=== PATIENT | female | born 1945 | race Caucasian/White ===

== ENCOUNTER 2025-04-06 10:59 | Emergency (ER) | payer MEDICARE, SELFPAY ==
[2025-04-06 11:08] VITALS: BP 160/70; PULSE 67; RESP 16; TEMP 36.6; O2SAT 97; BMI 26.5
--- NOTE | 2025-04-06 11:14 | EKG_ITS ---
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
--- NOTE | 2025-04-06 12:33 | PC.NURSE ---
Patient requests to leave. Explained provider is in room with patient and she is next to be seen. Estimated time provided of within 30 mins she will be seen by provider. Patient declines to be seen by provider or wait, requests to leave, declines ama form verbalizes wishes to leave.
== END 2025-04-06 12:33 | disposition left against medical advice (07) ==
PROVIDERS: Emergency Provider Student in an Organized Health Care Education/Training Program; PCP Family Medicine
DX: S09.90XA Unspecified injury of head, initial encounter (principal); W18.00XA Striking against unspecified object with subsequent fall, initial encounter; I10 Essential (primary) hypertension
CPT/HCPCS: 93005; 99281

== ENCOUNTER → 2025-07-16 09:17 | Outpatient (CLI) | payer MEDICARE, SELFPAY ==
[2025-07-16 10:01] LABS: Add Manual Diff / Slide Review NO; Hematocrit 46.4 % (36-46); Hemoglobin 15.7 g/dL (12.0-16.0); Lymphocytes Absolute Auto 3600 /uL (1100-4500); Mean Corpuscular HGB Conc 33.9 % (30-36); Mean Corpuscular Hemoglobin 30.0 PG (26-34); Mean Corpuscular Volume 88.7 fL (80-100); Platelet Count 167 X10^3/uL (150-400)
[2025-07-16 10:19] LABS: Alanine Aminotransferase 20 IU/L (<35); Albumin 4.7 g/dL (3.5-5.0); Albumin Globulin Ratio 1.8 (1.0-2.8); Alkaline Phosphatase 90 U/L (38-126); Blood Urea Nitrogen 10 mg/dL (7-17); Calcium 9.5 mg/dL (8.4-10.2); Carbon Dioxide 24 mmol/L (22-32); Chloride 108 mmol/L (98-107); Estimated Glomerular Filt Rate > 60 mL/min (>60); Globulin 2.6 g/dL (1.7-4.1); Glucose 93 mg/dL (70-99); HEMOLYSIS < 15 (0-50); Potassium 4.3 mmol/L (3.4-5.1); Sodium 142 mmol/L (137-145); Total Protein 7.3 g/dL (6.3-8.2)
== END ==
PROVIDERS: PCP Family Medicine; Referring Provider Family Medicine; Visit Provider Family Medicine
DX: Z79.899 Other long term (current) drug therapy (principal); R26.89 Other abnormalities of gait and mobility; G20.A1 Parkinson's disease without dyskinesia, without mention of fluctuations
CPT/HCPCS: 36415; 80053; 85025

== ENCOUNTER 2025-09-26 16:12 | Inpatient (IN) | payer MEDICARE, SELFPAY ==
[2025-09-26] VITALS (16 sets, daily range): BP systolic 137–162; BP diastolic 59–72; PULSE 62–101; RESP 13–24; TEMP 36.5; O2SAT 95–99; BMI 26.5
--- NOTE | 2025-09-26 17:16 | DI.RAD.S_ITS ---
PROCEDURE: XR CHEST 1V INDICATIONS: gen weak TECHNIQUE: One view of the chest was acquired. COMPARISON: None. FINDINGS: Surgical changes and devices: None. Lungs and pleura: Lungs are clear. No pleural effusions or pneumothorax. Mild interstitial prominence. Mediastinum: Mediastinal contours appear normal. Heart size is normal. Bones and chest wall: No suspicious bony lesions. Overlying soft tissues appear unremarkable. IMPRESSION: No acute cardiopulmonary abnormality is seen. Dictated by: Trevon Parker M.D. on 09/26/2025 at 16:46 Approved by: Trevon Parker M.D. on 09/26/2025 at 16:47
[2025-09-26] MEDS: SODIUM CHLORIDE 0.9% 1,000 ML 1000 ML IV (17:42)
[2025-09-26 17:46] LABS: Add Manual Diff / Slide Review NO; Hematocrit 45.7 % (36-46); Hemoglobin 15.8 g/dL (12.0-16.0); Lymphocytes Absolute Auto 3300 /uL (1100-4500); Mean Corpuscular HGB Conc 34.5 % (30-36); Mean Corpuscular Hemoglobin 29.9 PG (26-34); Mean Corpuscular Volume 86.9 fL (80-100); Platelet Count 170 X10^3/uL (150-400)
[2025-09-26 17:59] LABS: Alanine Aminotransferase 23 IU/L (<35); Albumin 4.8 g/dL (3.5-5.0); Albumin Globulin Ratio 1.5 (1.0-2.8); Alkaline Phosphatase 90 U/L (38-126); Blood Urea Nitrogen 16 mg/dL (7-17); Calcium 9.7 mg/dL (8.4-10.2); Carbon Dioxide 24 mmol/L (22-32); Chloride 105 mmol/L (98-107); Creatine Kinase 246 U/L (30-135); Estimated Glomerular Filt Rate > 60 mL/min (>60); Globulin 3.1 g/dL (1.7-4.1); Glucose 150 mg/dL (70-99); HEMOLYSIS < 15 (0-50); Potassium 3.2 mmol/L (3.4-5.1); Sodium 141 mmol/L (137-145); Total Protein 7.9 g/dL (6.3-8.2)
--- NOTE | 2025-09-26 18:02 | EKG_ITS ---
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
[2025-09-26 18:10] LABS: Troponin I < 0.012 ng/mL (0.01-0.034)
--- NOTE | 2025-09-26 19:03 | ED.WEAKNESS ---
HPI - Weakness General Chief complaint: Weakness Stated complaint: Fall Time Seen by Provider: 09/26/25 17:15 Source: patient Mode of arrival: EMS History of Present Illness HPI Narrative: 80-year-old female patient with a history of Parkinson's who lives in assisted living and was found down at independent living for 12 hours since last seen normal. She has had increasing weakness for months with increased falls in the last 4-5 days. Also has poor appetite not eating much in 5 days. And urinary incontinence which is new. patient tends to downplay her weakness. Her sister is with her and says she has not eaten much in 5 days and when she is on the floor she does not have the strength to get up. She says that is why she has not made it down to the cafeteria to eat. No recent illnesses. No fever, chills, URI or GI symptoms. No dysuria. Related Data Home Medications ?Medication ?Instructions ?Recorded ?Confirmed aspirin 325 mg tablet 325 mg PO BID 08/25/24 07/16/25 gabapentin 1 cap PO DAILY PRN 07/16/25 07/16/25 Allergies Allergy/AdvReac Type Severity Reaction Status Date / Time Sulfa (Sulfonamide Allergy Mild Hives Verified 07/16/25 07:23 Antibiotics) Review of Systems Review of Systems ROS Unobtainable: All systems reviewed & are unremarkable except as noted in HPI and below Constitutional Constitutional: Reports as per HPI Neurologic Neurologic: Reports as per HPI Patient History Social History Smoking Status: Never smoker Smoking Status: Never smoker Exam Narrative Exam Narrative: General: Alert and conversant. No distress. Appears adequately nourished and hydrated. Craniofacial: No evidence of trauma. Nontender and no swelling. Eyes: PERRLA EOMI conjunctiva clear Lungs: Clear to auscultation with good air movement. No wheezing, rales or rhonchi. No respiratory distress Cardiac: Regular rate and rhythm with no appreciable murmur or gallop Abdomen: Soft, nontender with no distention or masses. Normal bowel sounds. No rebound or guarding Musculoskeletal: Patient has MCL tenderness of the left knee with palpation and valgus stress. Otherwise no effusion or bony deformity. Otherwise Exam of the extremities, axial spine and ribcage reveals no deformity, bony tenderness or swelling. Range of motion intact Neuro: Alert and Cranial nerves, motor, sensory and cerebellar all grossly intact. No focal deficit Skin: Warm and normal color. No rashes Psychological: Normal affect and interaction. No evidence of delusion or psychosis. Normal mood. Initial Vital Signs Initial Vital Signs: Vital Signs Temperature 97.7 F 09/26/25 16:28 Pulse Rate 80 09/26/25 16:28 Respiratory Rate 18 09/26/25 16:28 Blood Pressure 137/63 09/26/25 16:28 Pulse Oximetry 99 09/26/25 16:28 Oxygen Delivery Method Room Air 09/26/25 16:28 Course Course Course Narrative: 21:10 I discussed the patient's care with Dr. Haddad who agrees to admit her on observation for generalized weakness and anorexia with possible dehydration. Decision to Admit Date: 09/26/25 Decision to Admit time: 21:10 Orders Ordered: ED Orders 09/26/25 17:16 Chest [XR chest 1V] Stat UA Complete [Urinalysis and Microscopic] Stat 09/26/25 17:35 CBC Auto Diff [Complete Blood Count AUTO DIFF] Stat CK [Creatine Kinase] Stat CMP [Comprehensive Metabolic Panel] Stat MAG [Magnesium] Stat Trop I [Troponin I] Stat 09/26/25 17:49 EKG-12 Lead Stat 09/26/25 21:16 Consult to Occupational Therapy Evaluate & Treat Consult to Physical Therapy Evaluate & Treat 09/27/25 06:00 Complete Blood Count AUTO DIFF DAILY Comprehensive Metabolic Panel DAILY Acetaminophen (Acetaminophen 325 Mg Tablet) 650 mg PO Q6H PRN PRN Reason: Fever/Mild Pain (1-3) Hydrocodone Bitart/Acetaminophen (Hydrocodone/Acet 5/325 Tablet) 1 tab PO Q4H PRN PRN Reason: Pain, Moderate (4-6) Gabapentin (Gabapentin 600 Mg Tablet) 600 mg PO DAILY PRN PRN Reason: pain Sodium Chloride (Normal Saline 0.9%) 1,000 mls @ 75 mls/hr IV CONT GUERDA Naloxone HCl (Naloxone 0.4 Mg/Ml Vial) 0.2 mg IV Q2MIN PRN PRN Reason: Opiate Reversal Ondansetron HCl (Ondansetron 4 Mg/2 Ml Inj) 4 mg IV Q8HR PRN PRN Reason: Nausea And Vomiting Discontinued Medications Sodium Chloride (Normal Saline 0.9%) 1,000 mls @ 1,000 mls/hr IV BOLUS ONE Stop: 09/26/25 18:15 Last Infusion: 09/26/25 18:44 Dose: Infused Documented By: Admin: 09/26/25 17:42 Dose: 1,000 mls/hr Documented By: RESHMA Vital Signs Vital signs: Vital Signs - 8 hr 09/26/25 16:28 09/26/25 17:25 09/26/25 17:30 Temperature 97.7 F Pulse Rate 80 75 Respiratory Rate 18 20 Blood Pressure 137/63 149/68 H Pulse Oximetry 99 97 Oxygen Delivery Method Room Air 09/26/25 17:30 09/26/25 18:00 09/26/25 18:30 Temperature Pulse Rate 75 76 63 Respiratory Rate 24 22 14 Blood Pressure Pulse Oximetry 97 95 96 Oxygen Delivery Method 09/26/25 19:00 09/26/25 19:30 09/26/25 19:46 Temperature Pulse Rate 65 62 80 Respiratory Rate 13 16 Blood Pressure Pulse Oximetry 97 96 98 Oxygen Delivery Method 09/26/25 19:46 09/26/25 19:56 09/26/25 19:56 Temperature Pulse Rate 72 Respiratory Rate 21 Blood Pressure 156/70 H 158/69 H Pulse Oximetry 97 Oxygen Delivery Method 09/26/25 20:00 09/26/25 20:00 09/26/25 20:30 Temperature Pulse Rate 70 69 Respiratory Rate 20 23 Blood Pressure 144/67 H Pulse Oximetry 96 99 Oxygen Delivery Method 09/26/25 20:30 09/26/25 21:00 09/26/25 21:00 Temperature Pulse Rate 73 Respiratory Rate 23 Blood Pressure 153/72 H 160/72 H Pulse Oximetry 98 Oxygen Delivery Method 09/26/25 21:19 09/26/25 21:19 Temperature Pulse Rate 71 Respiratory Rate 17 Blood Pressure 162/72 H Pulse Oximetry 96 Oxygen Delivery Method MDM - Weakness Medical Records Attestation: I reviewed the patient's medical records. Lab Data Attestation: I reviewed the patient's lab results. Lab results narrative: see my notes under MDM narrative 09/26/25 17:35 09/26/25 17:35 Labs: Lab Results 09/26/25 Range/Units 17:35 WBC 11.2 H (4.5-11.0) X10^3/uL RBC 5.26 H (4.0-5.2) X10^6/uL Hgb 15.8 (12.0-16.0) g/dL Hct 45.7 (36-46) % MCV 86.9 (80-100) fL MCH 29.9 (26-34) PG MCHC 34.5 (30-36) % RDW 13.9 (11.6-14.8) % Plt Count 170 (150-400) X10^3/uL Neut % (Auto) 61.8 (50-75) % Lymph % (Auto) 29.3 (25-40) % [place] % (Auto) 6.2 (3-14) % Eos % (Auto) 1.7 L (2-4) % Baso % (Auto) 1.0 (0-2) % Neut # (Auto) 6900 (2874-0374) /uL Lymph # (Auto) 3300 (7277-2317) /uL [place] # (Auto) 700 (0-900) /uL Eos # (Auto) 200 (0-450) /uL Baso # (Auto) 100 (0-100) /uL Sodium 141 (137-145) mmol/L Potassium 3.2 L (3.4-5.1) mmol/L Chloride 105 (98-107) mmol/L Carbon Dioxide 24 (22-32) mmol/L BUN 16 (7-17) mg/dL Creatinine 0.55 (0.52-1.04) mg/dL Estimated GFR > 60 (>60) mL/min BUN/Creatinine Ratio 29.1 H (6-22) Glucose 150 H (70-99) mg/dL Calcium 9.7 (8.4-10.2) mg/dL Magnesium 1.7 (1.6-2.3) mg/dL Total Bilirubin 1.9 H (0.2-1.3) mg/dL AST 38 H (14-36) IU/L ALT 23 (<35) IU/L Alkaline Phosphatase 90 (38-126) U/L Total Creatine Kinase 246 H (30-135) U/L Troponin I < 0.012 (0.01-0.034) ng/mL Total Protein 7.9 (6.3-8.2) g/dL Albumin 4.8 (3.5-5.0) g/dL Globulin 3.1 (1.7-4.1) g/dL Albumin/Globulin Ratio 1.5 (1.0-2.8) ECG Data Attestation: I personally reviewed and interpreted this ECG as follows: ( sinus rhythm with Sinus arrhythmia. Septal Q-waves. Anterior T-wave flattening. Rate 72. No ischemic changes) MDM Narrative Medical decision making narrative: [facility] help. She has a history of Parkinson's and possible depression although not documented. She presents with generalized weakness and not eating for 5 days according to the patient and her sister. She says she is too weak to go to the cafeteria and they do not provide food in her room. She does say she is hydrating well. She says she ended up on the floor when trying to move from the bed to the bathroom and could not get up to get herself in bed due to weakness. No known injury. Assessment reveals reassuring lab work. Even her creatinine kinase is only 246. She has received a L of fluid in the ER but could not use her walker to ambulate partly from weakness and probably from left knee pain which was assessed by myself. No evidence of fracture or effusion. She does have medial tenderness consistent with MCL sprain. I have discussed her care with the hospitalist who agrees to admit her on observation for worsening weakness and possible dehydration along with the anorexia. She may need to be placed at a higher level of Care such as assisted living or SNF. Discharge Plan Departure Patient Disposition: Admitted as Observation Clinical Impression: General weakness, Anorexia Admit Date/Time: 09/26/25 21:27 Admit Provider: Kishore Haddad
[2025-09-26 19:34] LABS: Magnesium 1.7 mg/dL (1.6-2.3)
--- NOTE | 2025-09-26 20:00 | PC.NURSE ---
Pt declined purewick placement or catheterized urine sample by this RN. Pt was offered toileting and a brief change alternatively. Pt again declined. Report given to next shift RN who will make another attempt to give patient incontinent care.
--- NOTE | 2025-09-26 20:01 | PC.NURSE ---
Patient was slighlty weaker than her normal, but was still able to situp up and stand on her own. She was not able to walk because of pain in her left knee.
[2025-09-27] MEDS: SODIUM CHLORIDE 0.9% 1,000 ML 75 ML IV (00:21)
[2025-09-27 01:10] VITALS: BP 165/67; PULSE 70; RESP 20; TEMP 36.3; O2SAT 92
[2025-09-27 02:13] LABS: Appearance Urine UA CLEAR; Bilirubin Urine UA 2+ (NEGATIVE); Color Urine UA YELLOW; Glucose Urine UA NEGATIVE (Negative); Ketones Urine UA 2+ (NEGATIVE); Leukocyte Esterase Urine UA TRACE (NEGATIVE); Nitrite Urine UA POSITIVE (Negative); Occult Blood Urine UA NEGATIVE (Negative); Protein Urine UA TRACE (Negative); Specific Gravity Urine UA 1.020 (1.000-1.035); Urobilinogen Urine UA 1.0 E.U./dL (0.2)
[2025-09-27 02:15] LABS: pH Urine UA 6.0 (4.5-8.0)
[2025-09-27 02:26] LABS: Culture Indicated Urine Specimen Cultured; Ictotest Urine Negative (Negative)
[2025-09-27 04:00] VITALS: BP 181/68; PULSE 69; RESP 18; TEMP 36.3; O2SAT 97
[2025-09-27 06:22] LABS: Add Manual Diff / Slide Review NO; Hematocrit 38.8 % (36-46); Hemoglobin 13.6 g/dL (12.0-16.0); Lymphocytes Absolute Auto 3700 /uL (1100-4500); Mean Corpuscular HGB Conc 34.9 % (30-36); Mean Corpuscular Hemoglobin 30.1 PG (26-34); Mean Corpuscular Volume 86.3 fL (80-100); Platelet Count 151 X10^3/uL (150-400)
[2025-09-27 06:33] LABS: Alanine Aminotransferase 18 IU/L (<35); Albumin 3.6 g/dL (3.5-5.0); Albumin Globulin Ratio 1.3 (1.0-2.8); Alkaline Phosphatase 74 U/L (38-126); Blood Urea Nitrogen 13 mg/dL (7-17); Calcium 8.6 mg/dL (8.4-10.2); Carbon Dioxide 21 mmol/L (22-32); Chloride 107 mmol/L (98-107); Estimated Glomerular Filt Rate > 60 mL/min (>60); Globulin 2.7 g/dL (1.7-4.1); Glucose 109 mg/dL (70-99); HEMOLYSIS < 15 (0-50); Potassium 3.1 mmol/L (3.4-5.1); Sodium 138 mmol/L (137-145); Total Protein 6.3 g/dL (6.3-8.2)
--- NOTE | 2025-09-27 07:25 | P.HP_ITS ---
History of Present Illness History of Present Illness Date Patient Seen: 09/26/25 Time Patient Seen: 23:40 Chief complaint: Fall Narrative: Continue female with past medical history of Parkinson disease, neuropathy presents with generalized weakness and found down. Per report the patient lives at a independent living facility. Over the last few weeks to months the patient has had increasing recurrent fall with generalized weakness. The patient also reports significant weight loss over the last few months due to poor appetite especially in the last few days. The patient also has some urinary incontinence which is new for her. Today the patient was found down and last known and seen normal was about 12 hours ago. The patient denies any head injury or serious injury and states that she was too weak and slowly fell to the ground. The patient was unable to get back up on her own to make it down to the cafeteria. Otherwise the patient denies any fever, chills, nausea, vomiting, diarrhea, chest pain or shortness of breath. In the emergency room, the patient was hemodynamically stable. Labs were relatively benign except for potassium 3.2. Her CK was only 246. Per ER physician the patient did report some left knee pain but there is no evidence of effusion or fracture. Due to generalized weakness and failure to thrive I ER physician requested for admission for possible placement. [facility] Social History household members: family Smoking Status: Never smoker Meds Home Medications and Allergies Home Medications ?Medication ?Instructions ?Recorded ?Confirmed ?Type aspirin 325 mg tablet 325 mg PO BID 08/25/2409/27 History gabapentin 300 mg capsule 300 mg PO PRN 09/27/2509/27 History Allergies Allergy/AdvReac Type Severity Reaction Status Date / Time Sulfa (Sulfonamide Allergy Mild Hives Verified 07/16/25 07:23 Antibiotics) Review of Systems Review of Systems ROS: Yes All systems reviewed with the patient and are negative except as otherwise documented Exam Vital Signs (past 8 hours): - 09/26/25 23:35 09/27/25 01:10 09/27/25 04:00 Temperature 97.4 F L 97.3 F L Pulse Rate 96 H 70 69 Respiratory Rate 18 20 18 Blood Pressure 145/60 H 165/67 H 181/68 H Pulse Oximetry 92 97 Oxygen Flow Rate 0 0 Oxygen Delivery Method Room Air Oxygen Flow Rate 0 Narrative Exam Narrative: Physical Exam: GENERAL: The patient is not in any acute distressed. Awake and alert. HEENT: Nonicteric sclerae, PERRLA, EOMI. Oropharynx clear. Moist mucous membranes. Conjunctivae appear well perfused. HEART: Regular rate and rhythm without murmurs. No lower extremities edema. LUNGS: Clear to auscultation bilaterally. No wheezing, crackles or rhonchi ABDOMEN: Soft, positive bowel sounds, nontender. SKIN: No rash, no excessive bruising, petechiae, or purpura. NEUROLOGIC: AxO x 3. Cranial nerves II-XII intact without motor/sensory deficit. Objective Labs 09/27/25 06:12 09/27/25 06:12 Labs: Laboratory Results - last 24 hr 09/26/25 09/27/25 09/27/25 17:35 01:58 06:12 WBC 11.2 H 9.8 RBC 5.26 H 4.50 Hgb 15.8 13.6 Hct 45.7 38.8 MCV 86.9 86.3 MCH 29.9 30.1 MCHC 34.5 34.9 RDW 13.9 14.3 Plt Count 170 151 Neut % (Auto) 61.8 52.3 Lymph % (Auto) 29.3 38.1 [place] % (Auto) 6.2 6.5 Eos % (Auto) 1.7 L 2.4 Baso % (Auto) 1.0 0.7 Neut # (Auto) 6900 5100 Lymph # (Auto) 3300 3700 [place] # (Auto) 700 600 Eos # (Auto) 200 200 Baso # (Auto) 100 100 Sodium 141 138 Potassium 3.2 L 3.1 L Chloride 105 107 Carbon Dioxide 24 21 L BUN 16 13 Creatinine 0.55 0.49 L Estimated GFR > 60 > 60 BUN/Creatinine Ratio 29.1 H 26.5 H Glucose 150 H 109 H Calcium 9.7 8.6 Magnesium 1.7 Total Bilirubin 1.9 H 1.2 AST 38 H 28 ALT 23 18 Alkaline Phosphatase 90 74 Total Creatine Kinase 246 H Troponin I < 0.012 Total Protein 7.9 6.3 Albumin 4.8 3.6 Globulin 3.1 2.7 Albumin/Globulin Ratio 1.5 1.3 Urine Color Yellow Urine Appearance Clear Urine pH 6.0 Ur Specific [place] 1.020 Urine Protein Trace H Urine Glucose (UA) Negative Urine Ketones 2+ H Urine Occult Blood Negative Urine Nitrate Positive H Urine Bilirubin 2+ H Ur Bilirubin Confirm Negative Urine Urobilinogen 1.0 Ur Leukocyte Esterase Trace H Urine RBC None seen Urine WBC 10-30/hpf H Ur Squamous Epith Cells 1-5 /hpf Urine Bacteria Moderate (10-30) H Ur Culture Indicated? Specimen cultured Vol Urine Centrifuged 10ml (spun) Assessment & Plan Assessment & Plan narrative: Generalized weakness with recurrent fall and failure to thrive. Admit the patient to medical observation. Again there is no sign of sepsis or infection. Patient is nonfocal on exam. Patient however is very weak and likely will need placement to [facility]. Gentle IV fluid and will need dietary consultation due to decreased appetite. Also consider further workup to rule out malignancy as outpatient as patient has significant weight loss and poor appetite over the last few months. Neuropathy. Resume home gabapentin. DVT prophylaxis SCDs. CODE STATUS full code. Disposition likely to [facility] facility in 1 to 2 days - As the provider of this telehealth evaluation, requested by the patient's evaluating physician, I attest that I introduced myself to the patient, provided my credentials and determined that telemedicine via a real-time, 2 way interactive audio and video platform is an appropriate and effective means of providing this service. - I reviewed the patient's chart and had a discussion with the member of the patient's treatment team. - The patient and I mutually agreed with continuation of this evaluation via telemedicine. The patient consented for the telemedicine evaluation. - This virtual encounter was taken place from [place] by Dr. Kishore Haddad. The patient was evaluated at [facility]. The encounter was approximately 35 minutes. The nurse was present during the entire time of the encounter and was able to assists with exam/stethoscope. Time-Based Coding :: [TOTAL MINUTES] spent with patient and on the chart (including review of chart, obtaining history, exam, reviewing outside data, placing orders, documenting exam and treatment plan, and counseling patient) on [DATE].
[2025-09-27] MEDS: GABAPENTIN 600 MG TABLET PO (08:49)
[2025-09-27] MEDS: POTASSIUM CHLORIDE 20 MEQ TAB 40 MEQ PO (08:50)
[2025-09-27 09:41] VITALS: BP 143/66; PULSE 78; RESP 16; TEMP 36.4; O2SAT 97
--- NOTE | 2025-09-27 11:00 | CM.DANOTE ---
Addendum entered by DESTIN Preston 09/27/25 12:34: ADD: Per PT, pt below baseline with ambulation and requiring some assist and fatigues quickly and recommends SNF rehab before return to independent apt. SW met bedside with pt and discussed recommendation of SNF and pt confirms no hx of SNF and provided SNF Choice list and discussed would need to confirm her [employer] would auth and is contracted with SNF preference. Pt acknowledged understanding and states currently her preference is [facility] for location and aware next closest SNF contracted is [facility]. Pt inquired if her dog could stay and SW explained likely dog could come visit with her sister but unlikely could stay but would confirm with SNF. Pt agreeable to [facility] referral. Secure emailed clinicals to [facility] and they are contracted with [employer] and willing to review. PASRR done. BF Original Note: Patient is a 80 yo female who was admitted OBS Status on 09/26/25 for GLF/weakness. Pt has [employer] MCR for insurance and her PCP is Dr. Margaret Silveira at . EMR was reviewed. Per MD, pt with hx of Parkinsons, neuropathy and was found down for slow GLF and too weak to get up. Pt currently not on any Parkinson's medications. PT/OT ordered and pending. SW met bedside with pt and explained role and she confirms that she lives at [facility] where she moved into her apt in February 2025 this year and feels that it has been going well and she has made some friends there and we sign up for lots of outings through [facility] and they provide transport. Pt no longer drives and she denies any hx of HH or SNF and does not recall any outpt PT for Parkinson's or strengthening. Pt states her DPOAs are her Dtr Cristina who lives in [facility] and her sister Alicia who lives in [place]. Pt may have some short term forgetfulness or potential lack of sleep. No prior hx of admits at [facility]. Plan: SW to follow closely for PT eval today to determine HH vs SNF and if SNF needed will need to obtain [employer] auth for SNF. DESTIN Preston Discharge Planning/Care Management CM Discharge Assessment Start: 09/26/25 23:33 Freq: Status: Active Protocol: Document 09/27/25 10:57 BF (Rec: 09/27/25 11:00 [email or web address]) Discharge Planning Assessment Assigned Discharge DESTIN Baxter Desktop Support Associate Provider Margaret Silveira Insurance [employer] MCR,[employer] DPOA/Assigned Dtr Cristina in [facility] and local sister Alicia Designee Name Contact Information [phone] Advance Directives? No Advance Directives No on File History Provided By Patient,Medical Record Has Patient been No admitted in last 30 days? Prior Living [facility] Facility Arrangements Comment [employer] [facility] Household Members family,none Type of Relies on Others transporation used prior to admit Comment Typically uses [facility] facility vehicle Facility Name [facility] Admitted From: Independent with ADL Yes: mostly 's Is patient alert and Yes: maybe forgetful oriented? Needs Assistance Meal Prep,Home Chores / Shopping With Caregiver for No Another Comment Pending PT eval and recommendations for HH vs SNF Barriers to Yes Discharge Comment If SNF, will need [employer] auth Discharge Plan Home with Home Health Transportation Sister vs facility van pending discharge needs Arrangement Additional Comment Pending PT eval and recommendations Whiteboard Updated Yes in Patient Room with name and ext. # of Audiovisual Equipment Operator Review Status In Process Please Provide Date 09/27/25 Initial DC Assessment Was Performed Next Review Type Continued Stay Review
[2025-09-27] MEDS: ENOXAPARIN 40 MG/0.4 ML SYRINGE SUBCUT (11:38)
--- NOTE | 2025-09-27 11:50 | PT.IIE ---
Physical Therapy Inpatient Evaluation/Re-Eval M1 PT IP Prior Functional Status Start: 09/27/25 11:40 Freq: NEEDED Status: Active Protocol: Document 09/27/25 11:40 KJ (Rec: 09/27/25 11:50 KJ [id number]) Medical Review Prior Functional Status Medical History Yes Reviewed Mobility and Gait Pt states she was ambulating to the dining room at [facility] w/4ww regularly, but also tells me she was not able to get into her bed, so she was sleeping on the floor, and then was not able to stand up. She is not able to tell me a timeline. Activities of Daily Pt states she dresses and bathes independently. Living and IADL's Prior Functional Lives at [facility], has meals prepared and cleaning Level (Other details done for her ) Social History Household Members family,none Living Arrangements Jail Facility Home Equipment Four Wheel Walker,Shower Seat with Backrest Additional Social Sister lives in town and visits several times per week. History Comment M2 PT-IP Current Condition Start: 09/27/25 11:40 Freq: NEEDED Status: Active Protocol: Document 09/27/25 11:40 KJ (Rec: 09/27/25 11:50 KJ [id number]) Physical Therapy Current Condition Current Condition Evaluation Date 09/27/25 Treatment Diagnosis Impaired mobility M3 PT-IP Subjective Start: 09/27/25 11:40 Freq: NEEDED Status: Active Protocol: Document 09/27/25 11:40 KJ (Rec: 09/27/25 11:50 KJ [id number]) Subjective Physical Therapy Visit Type Type Initial Evaluation Visit Start Time 11:02 Visit Stop Time 11:40 Physical Therapy Visit Comments Patient Comments Hesitation when answering questions. Therapy Pain Assessment Pain When Pain Assessed At Rest Pain Present Pain Present Pain Reported Location Left Knee Description Aching Pain Management Re-positioning Techniques M4 PT-IP Mobility and Gait Start: 09/27/25 11:40 Freq: NEEDED Status: Active Protocol: Document 09/27/25 11:40 KJ (Rec: 09/27/25 11:50 KJ [id number]) PT-Bed Mobility Assessment Rolling Type of Rolling Roll to Left Level of Assist Minimal Assistance Supine to Sit Supine to Sit Maximum Assistance Scooting Scooting to Edge of Maximum Assistance Bed PT-Transfer Assessment Sit to and From Stand Sit to and from Minimal Assistance Stand Equipment Transfer Assistive Gait Belt,Small Based Quad Cane Device Transfers Transfer Destination Chair,Bedside Commode Transfer Technique Stand Step Pivot Transfer Ability Level of Assist Contact Guard Assistance Comments Mobility Comments pain in L knee Gait Assessment Gait Gait Assistance Contact Guard Assist Required: Distance (Feet) 5 Assistive Devices Assistive Device Gait Belt,Front Wheeled Walker Gait Deviations General Gait Pattern Decreased Stride Length,Flexed Trunk,Narrow Based Gait Factors Limiting Gait Function Factors Limiting Pain Gait Function Comments Gait Comments lack of full knee ext on L PT-Balance Assessment Sitting Balance and Reactions Static Sitting Normal Balance Ability Dynamic Sitting Normal Balance Ability Standing Balance and Reactions Static Standing Good Balance Ability Dynamic Standing Good Balance Ability M5 PT-IP Objective Assessments Start: 09/27/25 11:40 Freq: NEEDED Status: Active Protocol: Document 09/27/25 11:40 KJ (Rec: 09/27/25 11:50 KJ [id number]) Orientation Orientation/Cognition Level of Alertness Lethargic Orientation Name,Age,Birthday Comments unable to describe situation which led to hospitalization Gross Range of Motion Upper Extremity ROM Assessment Left Impaired Impairments fingers lack PIP and DIP flexion on L Lower Extremity ROM Assessment Left Impaired Impairments L knee lacks full extension Strength Upper Extremity Strength Assessment Left Impaired Hand fingers Lower Extremity Strength Assessment Left Impaired Knee extension Comments Strength Comments Pt reports L knee hurts under the knee cap. She states she thinks she bumped it. No apparent bruising or redness. M6 PT-IP Treatment Start: 09/27/25 11:40 Freq: NEEDED Status: Active Protocol: Document 09/27/25 11:40 KJ (Rec: 09/27/25 11:50 KJ [id number]) Physical Therapy Treatment Exercises Exercises Ankle Pumps,Quad Sets,Short Arc Quads Education Education Provided Safety M7 PT-IP Assessment and Plan Start: 09/27/25 11:40 Freq: NEEDED Status: Active Protocol: Document 09/27/25 11:40 KJ (Rec: 09/27/25 11:50 KJ [id number]) PT Summary Assessment and Plan Potential Rehabilitation Good Potential Status of Condition Evolving at Evaluation Summary Impairments Pain,ROM,Strength,Bed Mobility,Transfers,Gait,Activity Tolerance Assessment Summary Per pt report she was having difficulty with transfers and bed mobility. This was apparent during this assessment. She will benefit from skilled PT to improve her independence in mobility. Goals Bed Mobility Goal Independent Transfer Goal Independent Gait Goal Independent Gait Distance 50 Frequency of Treatment Frequency Of Once a Day Treatment Treatment Plan Physical Therapy Bed Mobility Training,Transfer Training,Gait Training, Treatment Plan Therapeutic Exercise Other Mobility Recommendations and Next Treatment Focus Recommendations To Nursing Amount of Assist 1 Person Assist Needed Discharge Recommendations PT Discharge SNF Rehab Recommendations Transportation Needs Wheelchair/Cabulance at Discharge
[2025-09-27 15:55] VITALS: BP 107/41; PULSE 72; RESP 18; TEMP 36.1; O2SAT 95
--- NOTE | 2025-09-27 18:14 | PM.PN.1 ---
Subjective Subjective Interval history: 72-year-old female with underlying Parkinson's disease, which is untreated and peripheral neuropathy who was admitted from her [facility] with increasing weakness. She reports she lives in the independent living part of the facility. She typically goes to the cafeteria which is down the bloom for meals. There is also staff who cleans her room, so she does not do any housekeeping. She notes she has had increasing weakness which has been gradual over the past several months. She is gradually become less active overall. She states she has not had any falls, but rather got to the point where she was unable to get in bed so over the last days to approximately week, she had begun sleeping on the floor in her room. Evidently, a staff member had found her on the floor and she was apparently transferred to the hospital for further evaluation. She denies any acute illness symptoms. She had not been having any urinary frequency, urgency, or dysuria. No fevers or chills. No shortness breath or chest pain. She states she has been chronically incontinent over the past 2 years. While it was reported she has had weight loss over the past few months, the patient denies that to be the case. She states that she has not lost any weight and has been eating quite well. Exam Vital Signs (past 8 hours): - 09/27/25 15:55 Temperature 96.9 F L Pulse Rate 72 Respiratory Rate 18 Blood Pressure 107/41 L Pulse Oximetry 95 Oxygen Flow Rate 0 Oxygen Delivery Method Room Air Oxygen Flow Rate 0 Narrative Exam Narrative: GEN: Elderly female, Alert and oriented x 3, NAD; she initially had quite a flat affect, but after the nurse came in the room, she accidentally started with the patient, after that, the patient did have a more animated affect HEENT:NC, Face symmetric CHEST: Respiratory excursions symmetric, CTAB CV: RRR, no M/R/G ABD: Soft, NT/ND, BT present in all 4 quadrants, no organomegaly or masses EXTR: warm, well perfused, no C/C/E SKIN: warm and dry, no rash NEURO: Alert and oriented x 3, nonfocal Objective Labs 09/27/25 06:12 09/27/25 06:12 Labs: Laboratory Results - last 24 hr 09/26/25 09/27/25 09/27/25 17:35 01:58 06:12 WBC 9.8 RBC 4.50 Hgb 13.6 Hct 38.8 MCV 86.3 MCH 30.1 MCHC 34.9 RDW 14.3 Plt Count 151 Neut % (Auto) 52.3 Lymph % (Auto) 38.1 [place] % (Auto) 6.5 Eos % (Auto) 2.4 Baso % (Auto) 0.7 Neut # (Auto) 5100 Lymph # (Auto) 3700 [place] # (Auto) 600 Eos # (Auto) 200 Baso # (Auto) 100 Sodium 138 Potassium 3.1 L Chloride 107 Carbon Dioxide 21 L BUN 13 Creatinine 0.49 L Estimated GFR > 60 BUN/Creatinine Ratio 26.5 H Glucose 109 H Calcium 8.6 Magnesium 1.7 Total Bilirubin 1.2 AST 28 ALT 18 Alkaline Phosphatase 74 Total Protein 6.3 Albumin 3.6 Globulin 2.7 Albumin/Globulin Ratio 1.3 Urine Color Yellow Urine Appearance Clear Urine pH 6.0 Ur Specific [place] 1.020 Urine Protein Trace H Urine Glucose (UA) Negative Urine Ketones 2+ H Urine Occult Blood Negative Urine Nitrate Positive H Urine Bilirubin 2+ H Ur Bilirubin Confirm Negative Urine Urobilinogen 1.0 Ur Leukocyte Esterase Trace H Urine RBC None seen Urine WBC 10-30/hpf H Ur Squamous Epith Cells 1-5 /hpf Urine Bacteria Moderate (10-30) H Ur Culture Indicated? Specimen cultured Vol Urine Centrifuged 10ml (spun) PFSH Social History household members: family and none Smoking Status: Never smoker Assessment & Plan Assessment & Plan narrative: 1. Generalized weakness Per patient's report this has been a gradual onset over the past several months. There did not appear to be any inciting event. The history is somewhat different than what was obtained in the emergency department. She also told me she has not seen a physician in a long time. Upon reviewing her records, she established care with Dr. Margaret Silveira in mid August of 2024 and had a follow-up visit with her in July of 2025. She was supposed to be seen by Physical therapy but it is unclear if she ever pursued it. PT did evaluate her today with recommendations for long term for rehab. She is presently observation status. Await further discharge planning to ensure she has a safe discharge. 2. Peripheral neuropathy Continues on gabapentin. 3. Reported Parkinson's disease Unclear when this was diagnosed. She reportedly does not have any dyskinesia baseline and is not prescribed carbidopa levodopa. 4. Leukocytosis This was likely reactive as it has resolved on this morning's labs. Shows no evidence for infection. 5. Hypokalemia Repleting orally. Recheck labs in the morning. 6. Abnormal UA Urine culture pending. Again, she told me she has had urine incontinence for 2 years but in the emergency department it was reported this was a new symptom. Will await culture results. She does seem to give inconsistent information. Certainly, it could be reasonable to consider treating if she ends up with positive cultures for UTI Code status Full Prophylaxis On Lovenox Disposition PT recommended long term for rehab, but she is presently observation status which would make this a challenge from an insurance standpoint Time-Based Coding :: [TOTAL MINUTES] spent with patient and on the chart (including review of chart, obtaining history, exam, reviewing outside data, placing orders, documenting exam and treatment plan, and counseling patient) on [DATE].
[2025-09-27 20:00] VITALS: BP 145/67; PULSE 74; RESP 18; TEMP 35.8; O2SAT 97
[2025-09-28] MEDS: GABAPENTIN 600 MG TABLET PO (00:30)
[2025-09-28 05:47] LABS: Blood Urea Nitrogen 9 mg/dL (7-17); Calcium 8.5 mg/dL (8.4-10.2); Carbon Dioxide 21 mmol/L (22-32); Chloride 110 mmol/L (98-107); Estimated Glomerular Filt Rate > 60 mL/min (>60); Glucose 114 mg/dL (70-99); HEMOLYSIS < 15 (0-50); Potassium 3.2 mmol/L (3.4-5.1); Sodium 137 mmol/L (137-145)
[2025-09-28 08:00] VITALS: BP 148/60; PULSE 71; RESP 15; TEMP 36.4; O2SAT 96
[2025-09-28] MEDS: ENOXAPARIN 40 MG/0.4 ML SYRINGE SUBCUT (09:27)
[2025-09-28] MEDS: POTASSIUM CHLORIDE 20 MEQ TAB 40 MEQ PO ×2 (11:28→18:35)
--- NOTE | 2025-09-28 11:33 | OT.IP.EVAL ---
Occupational Therapy Inpatient Evaluation/Re-Eval M1 OT IP Prior Functional Status Start: 09/28/25 11:07 Freq: Status: Active Protocol: Document 09/28/25 11:09 HUBERT (Rec: 09/28/25 11:[facility] Medical Review Prior Functional Status Medical History Yes Reviewed Communication Pt able to make needs known. Mobility and Gait Pt states she was ambulating to the dining room at [facility] w/4ww regularly, but also tells me she was not able to get into her bed, so she was sleeping on the floor, and then was not able to stand up. She is not able to tell me a timeline. Activities of Daily Pt states she dresses and bathes independently. Living and IADL's Prior Functional Lives at [facility], has meals prepared and cleaning Level (Other details done for her ) Social History Household Members family,none Living Arrangements [facility] Facility Home Environment Standard Height Toilet,Walk in Shower Home Equipment Four Wheel Walker,Shower Seat with Backrest,Grab Bars In Shower Additional Social Sister lives in town and visits several times per week. History Comment Pt has a small dog that she reports walking several times a day. M2 OT-IP Current Condition Start: 09/28/25 11:07 Freq: Status: Active Protocol: Document 09/28/25 11:09 HUBERT (Rec: 09/28/25 11:33 [facility]) Occupational Therapy Current Condition Current Condition Evaluation Date 09/28/25 Treatment Diagnosis weakness, decreased self care Diagnosis Onset Date 09/26/25 M3 OT- IP Subjective and Pain Start: 09/28/25 11:07 Freq: Status: Active Protocol: Document 09/28/25 11:09 HUBERT (Rec: 09/28/25 11:33 [facility]) OT- Subjective Occupational Therapy Visit Type Type Initial Evaluation Visit Start Time 10:30 Visit Stop Time 11:03 Notes Pt was sitting EOB with nsg present preparing to t/f to BSC on entrance of OT. Pt agreeable to participating in OT eval. Occupational Therapy Visit Comments Patient Comments Pt states my priority is getting back to my dog Chowder Patient/Caregiver To get around better Goals OT Pain Assessment Pain When Pain Assessed After Treatment Pain Present Pain Present Pain Reported Location Left Knee Intensity 5 Scale Used Numeric (0 - 10) M4 OT- IP ADL's Start: 09/28/25 11:07 Freq: Status: Active Protocol: Document 09/28/25 11:09 GREGDEL (Rec: 09/28/25 11:33 [facility] OT [id number] Comments OT Self-Feeding not a meal time Comments OT ADL-Grooming General Evaluation Areas Needing Retrieving/Set-up of Grooming Items Assistance Comments OT Grooming Comments Pt washes her hands and brushes her hair while seated on setup. OT ADL-Oral Care General Eval Areas of Assistance Retrieving/Set-Up of Items Comments Oral Care Comments Pt performs while seated on setup OT ADL-Dressing General Eval Upper Body Dressing Minimal Assistance Ability Lower Body Dressing Minimal Assistance Ability Comments OT Dressing Comments Pt assisted in changing her gown with min A to tie. Pt needed min A to start brief on L foot (pt doffed brief without assistance). Pt declined changing her socks, despite not having non skid socks on, based on her quality of mvmt with don/doff brief, pt will likely need heavy assist with socks. Pt would benefit from LB AE education. OT ADL-Toileting General Evaluation Toileting Ability Minimal Assistance Comments OT Toileting Pt utilized BSC for toileting, pt needed min A to Comments manage clothing and setup of supplies for hygiene. Pt was able to manage her own hygiene upon setup. OT ADL-Bathing Comments OT Bathing Comments not observed M5 OT- IP IADL's Start: 09/28/25 11:07 Freq: Status: Active Protocol: Document 09/28/25 11:09 GREGDEL (Rec: 09/28/25 11:33 [facility] OT-Instrumental Activities of Daily Living Deficits IADL Deficits No Deficits Identified Home Safety Awareness Awareness of Need Decreased Awareness for Assistance at Home Home Safety Comments Pts primary concern is returning home to be with her dog, pt does not seem to understand the level of assistance she currently needs despite repeatedly saying I'm weak and I can't do much Medication Management Medication No Deficits Identified Management Money Management Money Management No Deficits Identified Meal Preparation Meal Preparation Caregiver Provides Assist Meal Preparation Pt has to walk to the cafeteria which she states is Comments about a football field away Cartographic Designer Cartographic Designer Caregiver Provides Assist Driving Driving Caregiver Provides Assist M6 OT- IP Functional Cognition Start: 09/28/25 11:07 Freq: Status: Active Protocol: Document 09/28/25 11:09 HUBERT (Rec: 09/28/25 11:33 CASENHHARRY Desktop) Cognitive Factors Limiting Selfcare Function Cognitive Ability Level of Alertness Alert Patient Orientation Name,Place,Situation Attention Span Capable of Focused Attention,Capable of Sustained Ability Attention Ability to Follow Able to Follow One Step Commands,Able to Follow Multi- Commands Step Commands Memory Description No Deficits Noted Safety Awareness Underestimates Need for Assistance Problem Solving No deficits Noted Ability Executive Function No Deficits Noted Ability Abstract Thinking No Deficits Noted Ability OT- Vision and Hearing OT- Hearing Assessment OT- Hearing WFL Assessment OT- Vision Assessment Visual Acuity WFL,Glasses All The Time M7 OT- IP Mobility and Balance Start: 09/28/25 11:07 Freq: Status: Active Protocol: Document 09/28/25 11:09 HUBERT (Rec: 09/28/25 11:33 CASENHHARRY Desktop) OT-Transfer Assessment Sit to and From Stand Sit to and from Minimal Assistance Stand Transfers Transfer Ability Contact Guard Assistance Technique Transfer Destination Bedside Commode,Chair Transfer Technique Stand Step Pivot Devices Transfer Assistive Gait Belt,Front Wheeled Walker Devices Comments Mobility Comments Pt refused to change into non skid socks, because of this pt states that she is being carefully by taking shuffling steps instead of taking full steps when performing tfs. Pt does not need cues to reach back for surfaces but does need cues to correctly align her body prior to sitting. OT- Balance Assessment Sitting Balance and Reactions Static Sitting Normal Balance Ability Dynamic Sitting Good Balance Ability Standing Balance and Reactions Static Standing Good Balance Ability Dynamic Standing Fair Balance Ability M8 OT- IP Objective Assessments Start: 09/28/25 11:07 Freq: Status: Active Protocol: Document 09/28/25 11:09 HUBERT (Rec: 09/28/25 11:33 CASENHHARRY Desktop) OT Gross Range of Motion Upper Extremity Range of Motion Assessment Left Impaired ROM Impairments fingers lack PIP and DIP flexion on L; otherwise UE AROM WFL OT Strength Upper Extremity Strength Assessment Bilaterally Impaired Shoulder 4- Elbow 4- Wrist 4- Hand 4- Hand Eligibility Consultant Strength Hand Dominance Right OT-Muscle Tone Assessment Muscle Tone WNL Yes OT Sensation Assessment Edema Edema Absent M9 OT- IP Assessment and Plan Start: 09/28/25 11:07 Freq: Status: Active Protocol: Document 09/28/25 11:09 CASEBETH (Rec: 09/28/25 11:33 CASEGENEVIEVEHARRY Desktop) OT Summary Assessment and Plan Potential Rehabilitation Good Potential Analytic Complexity Moderate at Evaluation Summary OT Impairments Pain,Strength,Balance,Functional Mobility,Self-Feeding, Grooming,Dressing,Toileting,Bathing,Toilet Transfers, Shower Transfers,Activity Tolerance Progress Towards Progressing Toward Goals Goals Assessment Summary Pt is a 80 yo F who was recently found by Independent living facility staff on her floor. Pt reports that she has been sleeping on the floor. Pt was admitted due to weakness and recurrent falls. Pt reports that she was able to perform her bathing and dressing and was walking her small dog several times a day when I was able. Pt does not define what frequency or when the last time she was able to walk her dog. Pt has to be able to walk to the cafeteria for meals which she states is about a football field distance. Pt presents with decreased functional tfs and mobility, decreased BADLS, muscle weakness, and decreased activity tolerance. Skilled OT services are appropriate to address these deficits and promote return towards PLOF. OT recommends dc to SNF to further address these deficits and promote return towards PLOF. Pt however, would prefer to go home with HH as she is very concerned about getting back to her dog. Pt was left up in chair with sister present and all needs in reach. Goals Self-Feeding Goal Independent Grooming Goal Independent Dressing Goal Independent,Metal Base Blocker,Sock Aid Toileting Goal Independent Bathing Goal Independent,Grab Bars Toilet Transfer Goal Independent Shower Transfer Goal Independent,Walk-in Shower,Shower Chair Days to Meet Goals 15 Frequency of Treatment Other frequency 5x/wk Treatment Plan OT Treatment Plan ADL Training,Functional Mobility,Therapeutic Exercises, Patient/Family Education,Discharge Planning Other Treatment LB AE training Recommendations and Next Treatment Focus Discharge Recommendations OT Discharge Home Health,Home vs SNF Recommendations Transportation Needs Private Vehicle,Wheelchair/Cabulance at Discharge
[2025-09-28] MEDS: KETOROLAC 30 MG/ML VIAL 15 MG IV (13:24)
--- NOTE | 2025-09-28 13:58 | CM.DPC ---
DCP SNF vs HH Cont: Per MD, pt's urine cultures came back Gram negative bacilli and adding Cystitis to her admission dx and starting her on antibiotics. Per OT, recommending SNF at d/c but if pt refuses or insurance does not auth SNF, feel pt could d/c back to [facility] with sister assist and HH. SW met bedside with pt but sister not bedside and Pt preference is home with HH so that she can be with her dog but pt somewhat forgetful and safety awareness concerns. SW attempted to call sister to discuss further but no answer. SW contacted Israel at [facility] (Jill out [facility]) and updated on new dx and sent OT eval (MD note from today and PT note from today not yet available) to determine if they can submit for [employer] auth for SNF today as pt likely ready for d/c by carlton Raymond. SUSAN previously done. Plan: SW to follow closely for [facility] review to confirm if they will submit for auth today and if SNF not an option then will need to make HH referral for return to [facility] with sister support. DESTIN Preston
--- NOTE | 2025-09-28 14:59 | PT.IPTN ---
Physical Therapy Treatment Note M2 PT-IP Current Condition Start: 09/27/25 11:40 Freq: NEEDED Status: Active Protocol: Document 09/27/25 11:40 KJ (Rec: 09/27/25 11:50 KJ [id number]) Physical Therapy Current Condition Current Condition Evaluation Date 09/27/25 Treatment Diagnosis Impaired mobility M3 PT-IP Subjective Start: 09/27/25 11:40 Freq: NEEDED Status: Active Protocol: Document 09/28/25 14:41 AMB (Rec: 09/28/25 14:59 AMB [id number]) Subjective Physical Therapy Visit Type Type Treatment Note Visit Start Time 14:10 Visit Stop Time 14:40 Physical Therapy Visit Comments Patient Comments Pt states she is willing to get up Therapy Pain Assessment Pain When Pain Assessed At Rest Pain Present Pain Present Pain Reported Location Left Knee Description Aching Pain Management Re-positioning Techniques M4 PT-IP Mobility and Gait Start: 09/27/25 11:40 Freq: NEEDED Status: Active Protocol: Document 09/28/25 14:41 AMB (Rec: 09/28/25 14:59 AMB [id number]) PT-Bed Mobility Assessment Supine to Sit Supine to Sit Contact Guard Assistance Sit to Supine Sit to Supine Minimal Assistance PT-Transfer Assessment Sit to and From Stand Sit to and from Contact Guard Assistance Stand Equipment Transfer Assistive Gait Belt,Front Wheeled Walker Device Transfers Transfer Destination Bed,Chair Transfer Technique Stand Step Pivot Transfer Ability Level of Assist Contact Guard Assistance Comments Mobility Comments pain in L knee limits weightbearing Gait Assessment Gait Gait Assistance Contact Guard Assist Required: Distance (Feet) 10 Assistive Devices Assistive Device Gait Belt,Front Wheeled Walker Gait Deviations General Gait Pattern Antalgic,Decreased Stride Length,Step-to Gait Factors Limiting Gait Function Factors Limiting Pain Gait Function Comments Gait Comments Patient reports she cannot fully weightbear through the L knee, she feels like it will give way. After 10' she fatigued and sat down, then after a 3 minute rest was able to walk back to bed. M5 PT-IP Objective Assessments Start: 09/27/25 11:40 Freq: NEEDED Status: Active Protocol: Document 09/27/25 11:40 KJ (Rec: 09/27/25 11:50 KJ [id number]) Orientation Orientation/Cognition Level of Alertness Lethargic Orientation Name,Age,Birthday Comments unable to describe situation which led to hospitalization Gross Range of Motion Upper Extremity ROM Assessment Left Impaired Impairments fingers lack PIP and DIP flexion on L Lower Extremity ROM Assessment Left Impaired Impairments L knee lacks full extension Strength Upper Extremity Strength Assessment Left Impaired Hand fingers Lower Extremity Strength Assessment Left Impaired Knee extension Comments Strength Comments Pt reports L knee hurts under the knee cap. She states she thinks she bumped it. No apparent bruising or redness. M6 PT-IP Treatment Start: 09/27/25 11:40 Freq: NEEDED Status: Active Protocol: Document 09/27/25 11:40 KJ (Rec: 09/27/25 11:50 KJ [id number]) Physical Therapy Treatment Exercises Exercises Ankle Pumps,Quad Sets,Short Arc Quads Education Education Provided Safety M7 PT-IP Assessment and Plan Start: 09/27/25 11:40 Freq: NEEDED Status: Active Protocol: Document 09/28/25 14:41 AMB (Rec: 09/28/25 14:59 AMB [id number]) PT Summary Assessment and Plan Summary Impairments Pain,ROM,Strength,Bed Mobility,Transfers,Gait,Activity Tolerance Assessment Summary Pt able to give a more detailed history today. States the left knee has been painful for a while but that it recently worsened. Was unable to get into bed because she couldn't get the left leg into bed, so she slept on the floor, then came to the hospital. Denies recent fall that would correspond to the increased knee pain. Denies significant redness or swelling. Does not weightbear fully and does not extend knee fully, but in sitting can get knee to at least 90 degree flexion. It would be difficult for her to return to her RETIREMENT in her current state, so unless her gait improves so that she can walk with a more normal gait pattern, she would need SNF rehab. Goals Bed Mobility Goal Independent Transfer Goal Independent Gait Goal Independent Gait Distance 50 Days to Meet Goals 5 Frequency of Treatment Frequency Of Once a Day Treatment Treatment Plan Physical Therapy Bed Mobility Training,Transfer Training,Gait Training, Treatment Plan Therapeutic Exercise Other Mobility Recommendations and Next Treatment Focus Recommendations To Nursing Amount of Assist 1 Person Assist Needed Discharge Recommendations PT Discharge SNF Rehab Recommendations Transportation Needs Wheelchair/Cabulance at Discharge - PT assist 1
--- NOTE | 2025-09-28 16:40 | P.PN_ITS ---
Subjective Subjective Date Patient Seen: 09/28/25 Interval history: Chief complaint: Severe weakness unable to get off the floor at [facility] with findings of urinary tract infection and dehydration History of present illness: 09/27: 72-year-old female with underlying Parkinson's disease, which is untreated and peripheral neuropathy who was admitted from her [facility] with increasing weakness. She reports she lives in the independent living part of the facility. She typically goes to the cafeteria which is down the bloom for meals. There is also staff who cleans her room, so she does not do any housekeeping. She notes she has had increasing weakness which has been gradual over the past several months. She is gradually become less active overall. She states she has not had any falls, but rather got to the point where she was unable to get in bed so over the last days to approximately week, she had begun sleeping on the floor in her room. Evidently, a staff member had found her on the floor and she was apparently transferred to the hospital for further evaluation. She denies any acute illness symptoms. She had not been having any urinary frequency, urgency, or dysuria. No fevers or chills. No shortness breath or chest pain. She states she has been chronically incontinent over the past 2 years. While it was reported she has had weight loss over the past few months, the patient denies that to be the case. She states that she has not lost any weight and has been eating quite well. Hospital course: 09/28: Feeling much more energetic today set it up in the chair limited amount of ambulation around the room because of severe pain in her knee no reported difficulty with appetite. Urinalysis significant for nitrites bacteriuria and pyuria IV fluids and intravenous ceftriaxone being administered. Discussed hospital course and post hospital planning or probably return to [facility] home Potassium still 3.2 Urine culture preliminary Gram-negative rods Review of systems: No fever or chills rigors No nausea vomiting diarrhea No dyspnea Paresthesia paresis Physical exam: Very pleasant alert and engaging elderly female HEENT unremarkable No labored respirations No abdominal distention Examination of left knee with limited motion due to patient hesitancy there is some crepitus with extension Assessment and plan: UTI with probable effects of lethargy and encephalopathy * Preliminary culture Gram-negative rods * continue ceftriaxone * PT evaluation Generalized weakness * Upon reviewing her records, she established care with Dr. Margaret Silveira in mid August of 2024 and had a follow-up visit with her in July of 2025. She was supposed to be seen by Physical therapy but it is unclear if she ever pursued it. PT did evaluate her with recommendations for [facility] for rehab on 08/27. S Peripheral neuropathy * Continues on gabapentin. Reported Parkinson's disease * Unclear when this was diagnosed. She reportedly does not have any dyskinesia baseline and is not prescribed carbidopa levodopa. Hypokalemia * Repleting orally. Recheck labs in the morning. Code status Full Prophylaxis * On Lovenox Disposition * Initially patient seemed to be skilled rehab but has had significant improvement in 24 hours I feel optimistic that she may be able to go back to her [facility] home Time-Based Coding :: 35 minutes spent with patient and on the chart (including review of chart, obtaining history, exam, reviewing outside data, placing orders, documenting exam and treatment plan, and counseling patient. Exam Vital Signs (past 8 hours): Oxygen Delivery Method Room Air Oxygen Flow Rate 0 Objective Labs 09/27/25 06:12 09/28/25 04:23 Labs: Laboratory Results - last 24 hr 09/28/25 04:23 Sodium 137 Potassium 3.2 L Chloride 110 H Carbon Dioxide 21 L BUN 9 Creatinine 0.49 L Estimated GFR > 60 BUN/Creatinine Ratio 18.4 Glucose 114 H Calcium 8.5 PFSH Social History household members: family and none Smoking Status: Never smoker Assessment & Plan Time-Based Coding :: [TOTAL MINUTES] spent with patient and on the chart (including review of chart, obtaining history, exam, reviewing outside data, placing orders, documenting exam and treatment plan, and counseling patient) on [DATE].
[2025-09-28 20:26] VITALS: BP 163/55; PULSE 73; RESP 18; TEMP 36.1; O2SAT 99
[2025-09-29 05:58] LABS: Blood Urea Nitrogen 9 mg/dL (7-17); Calcium 8.7 mg/dL (8.4-10.2); Carbon Dioxide 21 mmol/L (22-32); Chloride 112 mmol/L (98-107); Estimated Glomerular Filt Rate > 60 mL/min (>60); Glucose 103 mg/dL (70-99); HEMOLYSIS < 15 (0-50); Magnesium 1.7 mg/dL (1.6-2.3); Potassium 3.9 mmol/L (3.4-5.1); Sodium 140 mmol/L (137-145)
[2025-09-29 07:00] VITALS: BP 152/52; PULSE 60; RESP 17; TEMP 36.2; O2SAT 97
[2025-09-29] MEDS: ERTAPENEM 1 GM in SODIUM CHLORIDE 0.9% 100 ML IV (09:20)
[2025-09-29] MEDS: POTASSIUM CHLORIDE 20 MEQ TAB 40 MEQ PO ×2 (09:21→18:30)
[2025-09-29] MEDS: ENOXAPARIN 40 MG/0.4 ML SYRINGE SUBCUT (09:21)
[2025-09-29] MEDS: SODIUM CHLORIDE 0.9% FLUSH 10 ML IV ×2 (09:22→20:07)
--- NOTE | 2025-09-29 11:08 | PT.IPTN ---
Physical Therapy Treatment Note M2 PT-IP Current Condition Start: 09/27/25 11:40 Freq: NEEDED Status: Active Protocol: Document 09/29/25 10:02 AB (Rec: 09/29/25 11:08 AB Laptop) Physical Therapy Current Condition Current Condition Evaluation Date 09/27/25 Treatment Diagnosis Impaired mobility M3 PT-IP Subjective Start: 09/27/25 11:40 Freq: NEEDED Status: Active Protocol: Document 09/29/25 10:02 AB (Rec: 09/29/25 11:08 AB Laptop) Subjective Physical Therapy Visit Type Type Treatment Note Visit Start Time 10:12 Visit Stop Time 10:51 Physical Therapy Visit Comments Patient Comments Patient reports no pain left knee at rest, but can feel it and comments pain with occur with movement. Patient comments this is her nap time, but is agreeable to participate with back to bed post session. Therapy Pain Assessment Pain When Pain Assessed During Weight Bearing Pain Present Pain Present Pain Reported Location Left Knee Intensity 3 M4 PT-IP Mobility and Gait Start: 09/27/25 11:40 Freq: NEEDED Status: Active Protocol: Document 09/29/25 10:02 AB (Rec: 09/29/25 11:08 AB Laptop) PT-Bed Mobility Assessment Rolling Type of Rolling Roll to Left Level of Assist Minimal Assistance Supine to Sit Supine to Sit Minimal Assistance Sit to Supine Sit to Supine Minimal Assistance Scooting Scooting to Edge of Minimal Assistance Bed PT-Transfer Assessment Sit to and From Stand Sit to and from Contact Guard Assistance Stand Equipment Transfer Assistive Gait Belt,Front Wheeled Walker Device Comments Mobility Comments Increased time to perform all task. Repeated VC to avoid using bed rails as to mimic bed at home. Verbal cues for LE positioning for scooting with repeated verbal cues through out session. Gait Assessment Gait Gait Assistance Contact Guard Assist Required: Distance (Feet) 28 Assistive Devices Assistive Device Gait Belt,Front Wheeled Walker Gait Deviations General Gait Pattern Antalgic,Decreased Stride Length,Step-to Gait Factors Limiting Gait Function Factors Limiting Pain Gait Function Comments Gait Comments Patient ambulated 3 feet with FWW L and right with bed behind patient with one step VC for increased weight bearing through UE's on FWW during stance phase L LE to dec pain. Patient then ambulated 28 feet CGA verbal cues for inc weight bearing through UE's during L LE stance phase. PT-Balance Assessment Sitting Balance and Reactions Static Sitting Normal Balance Ability Dynamic Sitting Good Balance Ability Standing Balance and Reactions Static Standing Good Balance Ability Dynamic Standing Fair Balance Ability M5 PT-IP Objective Assessments Start: 09/27/25 11:40 Freq: NEEDED Status: Active Protocol: Document 09/27/25 11:40 KJ (Rec: 09/27/25 11:50 KJ [id number]) Orientation Orientation/Cognition Level of Alertness Lethargic Orientation Name,Age,Birthday Comments unable to describe situation which led to hospitalization Gross Range of Motion Upper Extremity ROM Assessment Left Impaired Impairments fingers lack PIP and DIP flexion on L Lower Extremity ROM Assessment Left Impaired Impairments L knee lacks full extension Strength Upper Extremity Strength Assessment Left Impaired Hand fingers Lower Extremity Strength Assessment Left Impaired Knee extension Comments Strength Comments Pt reports L knee hurts under the knee cap. She states she thinks she bumped it. No apparent bruising or redness. M6 PT-IP Treatment Start: 09/27/25 11:40 Freq: NEEDED Status: Active Protocol: Document 09/29/25 10:02 AB (Rec: 09/29/25 11:08 AB Laptop) Physical Therapy Treatment Exercises Exercises Ankle Pumps,Quad Sets,Heel Slides Knee ROM Measurement Long arc quad M7 PT-IP Assessment and Plan Start: 09/27/25 11:40 Freq: NEEDED Status: Active Protocol: Document 09/29/25 10:02 AB (Rec: 09/29/25 11:08 AB Laptop) PT Summary Assessment and Plan Summary Assessment Summary Patient requires increased cues to perform all tasks, increased difficulty with bed mobility and scooting while seated this session. Patient able to move L knee ( flex and extend )during exercises, but declined to move knee into flexed position during bed mobility to enable scooting with decreased difficulty in supine. Patient would benefit from SNF rehab to improve bed mobility and ambulation in order to access dining area where she lives. Goals Bed Mobility Goal Independent Transfer Goal Independent Gait Goal Independent Gait Distance 50 Days to Meet Goals 5 Frequency of Treatment Frequency Of Once a Day Treatment Treatment Plan Physical Therapy Bed Mobility Training,Transfer Training,Gait Training, Treatment Plan Therapeutic Exercise Other Mobility Recommendations and Next Treatment Focus Recommendations To Nursing Amount of Assist 1 Person Assist Needed Discharge Recommendations PT Discharge SNF Rehab Recommendations - PT assist 1
--- NOTE | 2025-09-29 11:43 | CM.DPNOTE ---
Addendum entered by DESTIN Norwood 09/29/25 16:33: DCP Update: 1600, HOUSE OFFICER entered room, pt was alone. She was somnolent and kept eyes closed during this meeting. HOUSE OFFICER inquired if she was able to determine her preference for discharge plan (SNF vs. Home with Home health/Infusions). Patient explains she is too tired to think about this now. HOUSE OFFICER re-iterated requiring her preference to assist with discharge coordination. Patient declines to discuss further, she states she asked her sister to also leave her room because she didn't want to talk about it anymore. HOUSE OFFICER confirmed with pt that a DCP will return early tomorrow morning to determine her preference, pt verbalized understanding. Plan: Anticipating discharge to [facility] vs. home ([facility]) with home health and home IV referrals dependent of pt preference. CM team will follow closely for coordination of discharge plans. Shayna Danielle, [facility] Original Note: DCP Continued: Per MD, pt is cultures populated with ESBL+ bacteria and will require IV antibiotics, switched to ertapenem today. Per PT/OT, recommending SNF Rehab to regain mobility strength or home health if pt preference is to return home. HOUSE OFFICER spoke with Jill at [facility] and it is reported that pt's [employer] insurance has authorized SNF admission; can accept any day with transport coordination. SW met bedside with pt and sister, Nell. Pt just worked with PT and recognizes there might be a need for SNF Rehab before returning home. HOUSE OFFICER reviewed on printed map where [facility] is located in relation to hospital and her snf facility. Pt requested more time to consider her options of SNF Rehab vs. home with home health and home IV infusions (administered by pt, her sister and/or home health RN). HOUSE OFFICER spoke with Dianne, Clinical Physician Assistant at [facility], who confirms that IV antibiotics can be administered at their facility ONLY by home health RN and/or patient and family. They do not have clinical staff to administer that themselves. Dianne requests a call at [phone] of pt discharge plans so they can coordinate accordingly. PASRR completed. HOUSE OFFICER notified hospitalist and RN of above. Plan: Anticipating discharge to [facility] vs. home ([facility]) with home health and home IV referrals. CM team will follow closely for coordination of discharge plans. TASHA Chandler
--- NOTE | 2025-09-29 13:13 | P.PN_ITS ---
Subjective Subjective Date Patient Seen: 09/29/25 Interval history: Chief complaint: Severe weakness unable to get off the floor at senior living home with findings of urinary tract infection and dehydration History of present illness: 09/27: 72-year-old female with underlying Parkinson's disease, which is untreated and peripheral neuropathy who was admitted from her [facility] with increasing weakness. She reports she lives in the independent living part of the facility. She typically goes to the cafeteria which is down the bloom for meals. There is also staff who cleans her room, so she does not do any housekeeping. She notes she has had increasing weakness which has been gradual over the past several months. She is gradually become less active overall. She states she has not had any falls, but rather got to the point where she was unable to get in bed so over the last days to approximately week, she had begun sleeping on the floor in her room. Evidently, a staff member had found her on the floor and she was apparently transferred to the hospital for further evaluation. She denies any acute illness symptoms. She had not been having any urinary frequency, urgency, or dysuria. No fevers or chills. No shortness breath or chest pain. She states she has been chronically incontinent over the past 2 years. While it was reported she has had weight loss over the past few months, the patient denies that to be the case. She states that she has not lost any weight and has been eating quite well. Hospital course: 09/28: Feeling much more energetic today set it up in the chair limited amount of ambulation around the room because of severe pain in her knee no reported difficulty with appetite. Urinalysis significant for nitrites bacteriuria and pyuria IV fluids and intravenous ceftriaxone being administered. Discussed hospital course and post hospital planning or probably return to senior living home Potassium still 3.2 09/29: Patient seems to be feeling better still having a lot of pain in her knee no benefit from Tylenol or ibuprofen recommend using hydrocodone for pain continue to evaluate with physical therapy Urine culture preliminary possibly ESBL E coli Review of systems: No fever or chills rigors No nausea vomiting diarrhea No dyspnea Paresthesia paresis Physical exam: Very pleasant alert and engaging elderly female HEENT unremarkable No labored respirations No abdominal distention Examination of left knee with limited motion due to patient hesitancy there is some crepitus with extension Assessment and plan: UTI with probable effects of lethargy and encephalopathy * Preliminary culture Gram-negative rods * continue ceftriaxone * PT evaluation Generalized weakness * Upon reviewing her records, she established care with Dr. Margaret Silveira in mid August of 2024 and had a follow-up visit with her in July of 2025. She was supposed to be seen by Physical therapy but it is unclear if she ever pursued it. PT did evaluate her with recommendations for half-way for rehab on 08/27. S Peripheral neuropathy * Continues on gabapentin. Reported Parkinson's disease * Unclear when this was diagnosed. She reportedly does not have any dyskinesia baseline and is not prescribed carbidopa levodopa. Hypokalemia * Repleting orally. Recheck labs in the morning. Code status Full Prophylaxis * On Lovenox Disposition * Initially patient seemed to be skilled rehab but has had significant improvement in 24 hours I feel optimistic that she may be able to go back to her senior living home * PT Summary Assessment and Plan Summary Assessment Summary Patient requires increased cues to perform all tasks, increased difficulty with bed mobility and scooting while seated this session. Patient able to move L knee ( flex and extend )during exercises, but declined to move knee into flexed position during bed mobility to enable scooting with decreased difficulty in supine. Patient would benefit from SNF rehab to improve bed mobility and ambulation in order to access dining area where she lives. Time-Based Coding :: 35 minutes spent with patient and on the chart (including review of chart, obtaining history, exam, reviewing outside data, placing orders, documenting exam and treatment plan, and counseling patient. Exam Vital Signs (past 8 hours): - 09/29/25 07:00 Temperature 97.1 F L Pulse Rate 60 Respiratory Rate 17 Blood Pressure 152/52 H Pulse Oximetry 97 Oxygen Flow Rate 0 Oxygen Delivery Method Room Air Oxygen Flow Rate 0 Objective Labs 09/27/25 06:12 09/29/25 05:12 Labs: Laboratory Results - last 24 hr 09/29/25 05:12 Sodium 140 Potassium 3.9 Chloride 112 H Carbon Dioxide 21 L BUN 9 Creatinine 0.52 Estimated GFR > 60 BUN/Creatinine Ratio 17.3 Glucose 103 H Calcium 8.7 Magnesium 1.7 PFSH Social History household members: family and none Smoking Status: Never smoker Assessment & Plan Time-Based Coding :: [TOTAL MINUTES] spent with patient and on the chart (including review of chart, obtaining history, exam, reviewing outside data, placing orders, documenting exam and treatment plan, and counseling patient) on [DATE].
[2025-09-29] MEDS: MAGNESIUM CHLORIDE 64 MG TABLET 128 MG PO (13:15)
--- NOTE | 2025-09-29 13:28 | OT.IP.TRT ---
Current Diagnoses Urinary tract infection, site not specified (09/28/25) Occupational Therapy Treatment Note M2 OT-IP Current Condition Start: 09/28/25 11:07 Freq: Status: Active Protocol: Document 09/28/25 11:09 HUBERT (Rec: 09/28/25 11:33 [facility] Desktop) Occupational Therapy Current Condition Current Condition Evaluation Date 09/28/25 Treatment Diagnosis weakness, decreased self care Diagnosis Onset Date 09/26/25 M3 OT- IP Subjective and Pain Start: 09/28/25 11:07 Freq: Status: Active Protocol: Document 09/29/25 13:40 [facility] (Rec: 09/29/25 13:48 [facility] Desktop) OT- Subjective Occupational Therapy Visit Type Type Treatment Note Visit Start Time 13:10 Visit Stop Time 13:38 Occupational Therapy Visit Comments Patient Comments Pt agreed to get up and go over LB dressing equipment needs. Patient/Caregiver TO be with her dog. Goals OT Pain Assessment Pain When Pain Assessed During Mobility Pain Present Pain Present Pain Reported Location Left Knee Pain Behaviors Facial Grimacing,Holding Area M4 OT- IP ADL's Start: 09/28/25 11:07 Freq: Status: Active Protocol: Document 09/29/25 13:40 [facility] (Rec: 09/29/25 13:48 [facility] Desktop) OT USD-Spti-Yfeyqzm Comments OT Self-Feeding Mot at meal time. Comments OT ADL-Grooming Comments OT Grooming Comments Pt states did prior. OT ADL-Oral Care Comments Oral Care Comments Pt states did prior. OT ADL-Dressing General Eval Lower Body Dressing Contact Guard Assistance Ability Comments OT Dressing Comments Able to practice use of Sock aid and fixed wing aircraft crew chief. At this time may need assist for balance while standing for LB dressing needs. OT ADL-Toileting Comments OT Toileting Pt not having to go. Comments OT ADL-Bathing Comments OT Bathing Comments not observed M5 OT- IP IADL's Start: 09/28/25 11:07 Freq: Status: Active Protocol: Document 09/28/25 11:09 HUBERT (Rec: 09/28/25 11:33 [facility] Desktop) OT-Instrumental Activities of Daily Living Deficits IADL Deficits No Deficits Identified Home Safety Awareness Awareness of Need Decreased Awareness for Assistance at Home Home Safety Comments Pts primary concern is returning home to be with her dog, pt does not seem to understand the level of assistance she currently needs despite repeatedly saying I'm weak and I can't do much Medication Management Medication No Deficits Identified Management Money Management Money Management No Deficits Identified Meal Preparation Meal Preparation Caregiver Provides Assist Meal Preparation Pt has to walk to the cafeteria which she states is Comments about a football field away Aquatics Assistant Department Head Aquatics Assistant Department Head Caregiver Provides Assist Driving Driving Caregiver Provides Assist M6 OT- IP Functional Cognition Start: 09/28/25 11:07 Freq: Status: Active Protocol: Document 09/29/25 13:40 [facility] (Rec: 09/29/25 13:48 [facility] Desktop) Cognitive Factors Limiting Selfcare Function Cognitive Comments Cognitive Assessment Pt a bit slow to initiate movements and follow commands Comments . Pt will benefit from SLUMS tomorrow. M7 OT- IP Mobility and Balance Start: 09/28/25 11:07 Freq: Status: Active Protocol: Document 09/29/25 13:40 [facility] (Rec: 09/29/25 13:48 [facility] Desktop) OT- Bed Mobility Assessment Supine to Sit Supine to Sit Assist Standby Assistance,Bedrails OT-Transfer Assessment Sit to and From Stand Sit to and from Contact Guard Assistance Stand Devices Transfer Assistive Front Wheeled Walker Devices Comments Mobility Comments INcreased time and heavy use of bedrail for bed mobility needs. Use of the back of her legs on the bed to stand and able to side step up to the head of the bed with CGA/SBA with FWW. CGA to get back into bed. OT- Balance Assessment Sitting Balance and Reactions Static Sitting Normal Balance Ability Dynamic Sitting Good Balance Ability Standing Balance and Reactions Static Standing Good Balance Ability Dynamic Standing Fair Balance Ability M8 OT- IP Objective Assessments Start: 09/28/25 11:07 Freq: Status: Active Protocol: Document 09/28/25 11:09 [facility] (Rec: 09/28/25 11:33 [facility] Desktop) OT Gross Range of Motion Upper Extremity Range of Motion Assessment Left Impaired ROM Impairments fingers lack PIP and DIP flexion on L; otherwise UE AROM WFL OT Strength Upper Extremity Strength Assessment Bilaterally Impaired Shoulder 4- Elbow 4- Wrist 4- Hand 4- Hand Weigher Packing Strength Hand Dominance Right OT-Muscle Tone Assessment Muscle Tone WNL Yes OT Sensation Assessment Edema Edema Absent M9 OT- IP Assessment and Plan Start: 09/28/25 11:07 Freq: Status: Active Protocol: Document 09/29/25 13:40 [facility] (Rec: 09/29/25 13:48 [facility] Desktop) OT Summary Assessment and Plan Potential Rehabilitation Good Potential Analytic Complexity Moderate at Evaluation Summary OT Impairments Pain,Strength,Balance,Functional Mobility,Self-Feeding, Grooming,Dressing,Toileting,Bathing,Toilet Transfers, Shower Transfers,Activity Tolerance Progress Towards Progressing Toward Goals Goals Assessment Summary Pt able to practice use of LB dressing equipment with good success. Pt needing increased time to initiate movements and follow commands today. Pt will benefit from SLUMS at home. Pt will benefit from SNF, otherwise if pt insistent to go home will need 24/7 available assist and home health. Goals Self-Feeding Goal Independent Grooming Goal Independent Dressing Goal Independent,Mental Health Aides Teacher,Sock Aid Toileting Goal Independent Bathing Goal Independent,Grab Bars Toilet Transfer Goal Independent Shower Transfer Goal Independent,Walk-in Shower,Shower Chair Days to Meet Goals 14 Frequency of Treatment Other frequency 5x/week Treatment Plan OT Treatment Plan ADL Training,Functional Mobility,Therapeutic Exercises, Patient/Family Education,Discharge Planning Other Treatment SLUMS Recommendations and Next Treatment Focus Discharge Recommendations OT Discharge SNF Rehab Recommendations Other Discharge if refusing SNF, home with 24/7 available assist and Recommendations home health Transportation Needs Private Vehicle,Wheelchair/Cabulance at Discharge
[2025-09-29 20:56] VITALS: BP 142/54; PULSE 61; RESP 16; TEMP 36.1; O2SAT 97
[2025-09-30 05:34] LABS: Blood Urea Nitrogen 5 mg/dL (7-17); Calcium 8.8 mg/dL (8.4-10.2); Carbon Dioxide 22 mmol/L (22-32); Chloride 110 mmol/L (98-107); Estimated Glomerular Filt Rate > 60 mL/min (>60); Glucose 112 mg/dL (70-99); HEMOLYSIS < 15 (0-50); Magnesium 1.7 mg/dL (1.6-2.3); Potassium 3.9 mmol/L (3.4-5.1); Sodium 138 mmol/L (137-145)
[2025-09-30 08:00] VITALS: BP 180/70; PULSE 72; RESP 16; TEMP 36.2; O2SAT 100
--- NOTE | 2025-09-30 08:45 | DI.MRI.S_ITS ---
PROCEDURE: MR KNEE LT WO CON INDICATIONS: Knee pain unable to bear weight TECHNIQUE: Noncontrast sagittal PD fast spin echo and T2 fast spin echo with fat saturation, sagittal 3-D FLASH with fat saturation; coronal T1 spin echo and PD fast spin echo with fat saturation, and axial PD fast spin echo with fat saturation through the knee. COMPARISON: [facility], CR, XR KNEE LT 3V, 09/30/2025, 8:41. FINDINGS: Image quality: Diagnostic. Patient motion is noted. Menisci: There is subtle signal abnormality involving posterior horn of medial meniscus extending to medial periphery of inferior articulating surface concerning for subtle oblique tear. The lateral meniscus is intact. Cruciate ligaments: The anterior and posterior cruciate ligaments appear intact. Medial structures: The medial collateral ligament appears thickened near its femoral insertion. Visualized portions of the pes anserinus tendons appear normal. No abnormal bursal fluid. Lateral structures: The lateral collateral ligament, long and short heads of the biceps femoris tendon appear intact. The popliteus tendon appears intact. Iliotibial band appears normal. Anterior structures: Distal quadriceps tendinosis at its superior patellar insertion is seen. The patellar tendon is intact. Patellar alignment is normal. 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 No acute fracture or dislocation. Joint space: There is small knee joint fluid. No Aguirre's cyst. Normal appearing synovial plicae are incidentally noted. IMPRESSION: 1. Finding may represent very subtle oblique tear involving posterior horn of medial meniscus extending to medial periphery of inferior articulating surface. Clinical correlation is recommended. The lateral meniscus is intact. 2. The cruciate ligaments are intact. 3. Low-grade proximal MCL sprain/partial-thickness tear. 4. Low to moderate grade distal quadriceps tendinosis. Patellar tendon is intact. 5. 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 No fracture or dislocation. Small joint effusion, no loose bodies. Dictated by: Bj Hong M.D. on 09/30/2025 at 10:44 Approved by: jB Hong M.D. on 09/30/2025 at 10:51
--- NOTE | 2025-09-30 08:46 | DI.RAD.S_ITS ---
PROCEDURE: XR KNEE LT 3V INDICATIONS: Knee pain unable to bear weight TECHNIQUE: 3 views of the knee were acquired. COMPARISON: None. FINDINGS: Bones: No fractures or dislocations. Xrdc-jo-[id number] tricompartmental osteoarthritis is seen more notably in medial femoral tibial compartment and patellofemoral compartment. No significant patellar subluxation. No suspicious bony lesions. Soft tissues: No joint effusion. No suspicious soft tissue calcifications. IMPRESSION: No acute fracture or dislocation. No significant joint effusion. Zlss-ty-nrpqskrg tricompartmental osteoarthritis. Dictated by: Bj Hong M.D. on 09/30/2025 at 9:27 Approved by: Bj Hong M.D. on 09/30/2025 at 9:27
[2025-09-30] MEDS: CIPROFLOXACIN 250 MG TABLET 500 MG PO (09:29)
[2025-09-30] MEDS: ENOXAPARIN 40 MG/0.4 ML SYRINGE SUBCUT (09:29)
[2025-09-30] MEDS: SODIUM CHLORIDE 0.9% FLUSH 10 ML IV (09:29)
[2025-09-30] MEDS: GABAPENTIN 600 MG TABLET PO (09:29)
--- NOTE | 2025-09-30 11:40 | P.DS_ITS ---
History of Present Illness History of Present Illness Date Patient Seen: 09/30/25 Chief complaint: Fall Narrative: Chief complaint: Severe weakness unable to get off the floor at half-way home with findings of urinary tract infection and dehydration History of present illness: 09/27: 72-year-old female with underlying Parkinson's disease, which is untreated and peripheral neuropathy who was admitted from her [facility] with increasing weakness. She reports she lives in the independent living part of the facility. She typically goes to the cafeteria which is down the bloom for meals. There is also staff who cleans her room, so she does not do any housekeeping. She notes she has had increasing weakness which has been gradual over the past several months. She is gradually become less active overall. She states she has not had any falls, but rather got to the point where she was unable to get in bed so over the last days to approximately week, she had begun sleeping on the floor in her room. Evidently, a staff member had found her on the floor and she was apparently transferred to the hospital for further evaluation. She denies any acute illness symptoms. She had not been having any urinary frequency, urgency, or dysuria. No fevers or chills. No shortness breath or chest pain. She states she has been chronically incontinent over the past 2 years. While it was reported she has had weight loss over the past few months, the patient denies that to be the case. She states that she has not lost any weight and has been eating quite well. Hospital course: 09/28: Feeling much more energetic today set it up in the chair limited amount of ambulation around the room because of severe pain in her knee no reported difficulty with appetite. Urinalysis significant for nitrites bacteriuria and pyuria IV fluids and intravenous ceftriaxone being administered. Discussed hospital course and post hospital planning or probably return to half-way home Potassium still 3.2 09/29: Patient seems to be feeling better still having a lot of pain in her knee no benefit from Tylenol or ibuprofen recommend using hydrocodone for pain continue to evaluate with physical therapy 09/30: Patient feeling ready to go home need to manage with assistance to ambulate and get to meals or have meals brought up to her at her half-way home we will get an MRI of the knee x-ray prescription for hydrocodone for pain Review of systems: No fever or chills rigors No nausea vomiting diarrhea No dyspnea Paresthesia paresis Physical exam: Very pleasant alert and engaging elderly female HEENT unremarkable No labored respirations No abdominal distention Examination of left knee with limited motion due to patient hesitancy there is some crepitus with extension Assessment and plan: E coli UTI effects of lethargy and encephalopathy weakness unable to ambulate * Cipro 500 b.i.d. for total of 8 days of treatment Peripheral neuropathy * Continues on gabapentin. Reported Parkinson's disease (diagnosis not favored by this author) * Unclear when this was diagnosed. She reportedly does not have any dyskinesia baseline and is not prescribed carbidopa levodopa. Hypokalemia * Repleted Code status * Full Prophylaxis * On Lovenox Disposition * Discharge to previous regimens (half-way home) with ambulatory assistance devices knee brace and follow up with Orthopedic surgery for left knee Time-Based Coding :: 35 minutes spent with patient and on the chart (including review of chart, obtaining history, exam, reviewing outside data, placing orders, documenting exam and treatment plan, and counseling patient. Discharge Providers Provider Date of admission: 09/28/25 15:01 Discharge Date: 09/30/25 Primary care physician: Margaret Silveira DO Consults: 09/26/25 21:16 Consult to Occupational Therapy Evaluate & Treat Comment: Physician Instructions: Evaluate and treat Consult to Physical Therapy Evaluate & Treat Comment: Physician Instructions: Evaluate and Treat 09/27/25 14:52 Consult to Pharmacy Routine Comment: high fall risk 09/28/25 07:49 Consult to Pharmacy Routine Comment: high fall risk Discharge provider: Abiel Douglass MD Exam Vital Signs (past 8 hours): - 09/30/25 08:00 Temperature 97.2 F L Pulse Rate 72 Respiratory Rate 16 Blood Pressure 180/70 H Pulse Oximetry 100 Oxygen Flow Rate 0 Oxygen Delivery Method Room Air Oxygen Flow Rate 0 Objective Labs 09/27/25 06:12 09/30/25 04:44 Labs: Laboratory Results - last 24 hr 09/30/25 04:44 Sodium 138 Potassium 3.9 Chloride 110 H Carbon Dioxide 22 BUN 5 L Creatinine 0.55 Estimated GFR > 60 BUN/Creatinine Ratio 9.1 Glucose 112 H Calcium 8.8 Magnesium 1.7 PFSH Social History household members: family and none Smoking Status: Never smoker Discharge Plan Discharge Plan Patient Disposition: Home Discharge orders & Medications Prescriptions: New hydrocodone-acetaminophen 5-325 mg Tablet 1 tab PO Q4H PRN (Reason: Pain, Moderate (4-6)) Qty: 20 0RF ciprofloxacin HCl 500 mg tablet 500 mg PO BID Qty: 10 0RF Continued aspirin 325 mg tablet 325 mg PO BID gabapentin 300 mg capsule 300 mg PO PRN Follow up/Referrals: Margaret Silveira DO [Primary Care Provider, Family Practice] Visit Report/Discharge Packet Stand Alone Forms: Patient Portal/API, Stroke Signs & Symptoms Discharge Data Primary Care Provider: Margaret Silveira
[2025-09-30] MEDS: ACETAMINOPHEN 325 MG TABLET 650 MG PO (11:52)
--- NOTE | 2025-09-30 11:59 | CM.DPC ---
DUANE Cont. Reviewed EMR and team rounds for pt's medical status and updates. Her final cultures were negative for ESBL, so she will not be discharging on IV antibiotics. However, her knee is very painful w/limited mobility, so plan is to still go to [facility] today, they will transport her at 1:00 pm.
--- NOTE | 2025-09-30 12:05 | PT.IPTN ---
Current Diagnoses Urinary tract infection, site not specified (09/28/25) Physical Therapy Treatment Note M2 PT-IP Current Condition Start: 09/27/25 11:40 Freq: NEEDED Status: Active Protocol: Document 09/29/25 10:02 AB (Rec: 09/29/25 11:08 AB Laptop) Physical Therapy Current Condition Current Condition Evaluation Date 09/27/25 Treatment Diagnosis Impaired mobility M3 PT-IP Subjective Start: 09/27/25 11:40 Freq: NEEDED Status: Active Protocol: Document 09/30/25 12:05 [facility] (Rec: 09/30/25 12:27 [facility] Desktop) Subjective Physical Therapy Visit Type Type Treatment Note Visit Start Time 11:20 Visit Stop Time 12:05 Notes 45 min Number of DONOR SERVICES MANAGER Visits 0 Physical Therapy Visit Comments Patient Comments She reports ongoing left knee pain that limits her walking. She describes increased pain with putting weight on her knee. She wants to hear what her MRI results are on the knee. She agrees to go to SNF to help her knee get better. Patient Goals Get well enough to go home. Therapy Pain Assessment Pain When Pain Assessed During Weight Bearing Pain Present Pain Present Pain Reported Location Left Knee Intensity 5 Scale Used Numeric (0 - 10) Description Aching,Tender,With Movement Pain Behaviors Guarding,Wincing Pain Management Modification of Treatment,Re-positioning Techniques M4 PT-IP Mobility and Gait Start: 09/27/25 11:40 Freq: NEEDED Status: Active Protocol: Document 09/30/25 12:05 [facility] (Rec: 09/30/25 12:27 [facility] Desktop) PT-Bed Mobility Assessment Rolling Type of Rolling Log Rolling Level of Assist Minimal Assistance Supine to Sit Supine to Sit Minimal Assistance Sit to Supine Sit to Supine Minimal Assistance Scooting Scooting to Edge of Minimal Assistance Bed PT-Transfer Assessment Sit to and From Stand Sit to and from Contact Guard Assistance Stand Equipment Transfer Assistive Gait Belt,Front Wheeled Walker Device Transfers Transfer Destination Bed,Chair Transfer Technique Stand Step Pivot Transfer Ability Level of Assist Minimal Assistance Comments Mobility Comments she does not fully turn and back up to the sitting surface during transfers causing and unsafe transfer, she needs a lot of cuing and physical assist to improve her safety and protect left knee She needs assist for left LE in/out of bed due to pain and functional weakness. Gait Assessment Gait Gait Assistance Contact Guard Assist Required: Distance (Feet) 40 Assistive Devices Assistive Device Gait Belt,Front Wheeled Walker Gait Deviations General Gait Pattern Antalgic,Decreased Stride Length,Step-to Gait Factors Limiting Gait Function Factors Limiting Decreased Activity Tolerance,Pain,Poor Balance Gait Function Comments Gait Comments antalgic gait with decreased stance time on left LE with knee pain, short strides bilaterally, intermittent short standing rests to complete 40 feet, she reports increased knee pain after gait. Pt left up in recliner with her Sister visiting and call light close at the end of this visit. PT-Balance Assessment Sitting Balance and Reactions Static Sitting Normal Balance Ability Dynamic Sitting Good Balance Ability Standing Balance and Reactions Static Standing Fair Balance Ability Dynamic Standing Fair Balance Ability Device Used FWW M5 PT-IP Objective Assessments Start: 09/27/25 11:40 Freq: NEEDED Status: Active Protocol: Document 09/27/25 11:40 KJ (Rec: 09/27/25 11:50 KJ [id number]) Orientation Orientation/Cognition Level of Alertness Lethargic Orientation Name,Age,Birthday Comments unable to describe situation which led to hospitalization Gross Range of Motion Upper Extremity ROM Assessment Left Impaired Impairments fingers lack PIP and DIP flexion on L Lower Extremity ROM Assessment Left Impaired Impairments L knee lacks full extension Strength Upper Extremity Strength Assessment Left Impaired Hand fingers Lower Extremity Strength Assessment Left Impaired Knee extension Comments Strength Comments Pt reports L knee hurts under the knee cap. She states she thinks she bumped it. No apparent bruising or redness. M6 PT-IP Treatment Start: 09/27/25 11:40 Freq: NEEDED Status: Active Protocol: Document 09/30/25 12:05 [facility] (Rec: 09/30/25 12:27 [facility] Desktop) Physical Therapy Treatment Exercises Exercises Ankle Pumps,Quad Sets,Heel Slides,Straight Leg Raises Other Treatments Other Treatment she needs assist for exercises due to left knee pain, Performed exercises only performed left LE except ankle pumps are bilateral, limited knee flexion ROM with heel slide and limited ROM on straight leg raise due to knee pain M7 PT-IP Assessment and Plan Start: 09/27/25 11:40 Freq: NEEDED Status: Active Protocol: Document 09/30/25 12:05 DLM (Rec: 09/30/25 12:27 [facility] Desktop) PT Summary Assessment and Plan Summary Impairments Pain,ROM,Strength,Bed Mobility,Transfers,Gait,Activity Tolerance Progress Towards Slow Progress due to Pain Goals Assessment Summary She reports feeling better over-all but she has ongoing left knee pain. Her distance of gait is limited by her knee pain. She is not able to use her normal 4WW due to increased UE support needed which is better managed with the FWW. Her Sister reports having a FWW that the pt can use. She continues to be unsafe to return to her assisted living apt due to her limited mobility and progressive increase in pain with gait. Recommend SNF rehab for ongoing strengthening, gait advancement and left knee pain management. Goals Bed Mobility Goal Independent Transfer Goal Independent,Front Wheeled Walker,Four Wheeled Walker Gait Goal Independent,Front Wheel Walker,Four Wheel Walker Gait Distance 50 feet Days to Meet Goals 5 Frequency of Treatment Frequency Of Once a Day Treatment Treatment Plan Physical Therapy Bed Mobility Training,Transfer Training,Gait Training, Treatment Plan Therapeutic Exercise,Balance Retraining,Discharge Planning,Hot or Cold Pack,Neuromuscular Re-ed,Manual Therapy Other manage left knee pain Recommendations and Next Treatment Focus Recommendations To Nursing Amount of Assist 1 Person Assist Needed Discharge Recommendations PT Discharge SNF Rehab Recommendations Transportation Needs Wheelchair/Cabulance at Discharge - PT assist 1
--- NOTE | 2025-09-30 12:42 | PC.NURSE ---
Patient will be going to SNF at 1300. She is not excited about it but understands that she will need to so she can get stronger and ambulate better on her l.knee. Patient states that tylenol makes her nauseated but she wants vicodin for pain and this does have tylenol it. Patient states that she can tolerate this. This RN senses some confusion in patient, she does have a uti with ecoli and will be going with po antibiotics.
== END 2025-09-30 13:35 | DRG 690 ==
LOC: ED 21:28 → AC 21:28
PROVIDERS: Emergency Medicine; Pharmacist Pharmacist Clinician (PhC)/ Clinical Pharmacy Specialist; Admitting Provider Internal Medicine; Emergency Provider Emergency Medicine; PCP Family Medicine; Referring Provider Emergency Medicine; Visit Provider Internal Medicine
DX: N39.0 Urinary tract infection, site not specified (principal); G93.40 Encephalopathy, unspecified; R29.6 Repeated falls; R53.1 Weakness; M25.562 Pain in left knee; R62.7 Adult failure to thrive; G62.9 Polyneuropathy, unspecified; E87.6 Hypokalemia; R32 Unspecified urinary incontinence; R63.0 Anorexia; E86.0 Dehydration; B96.20 Unspecified Escherichia coli [E. coli] as the cause of diseases classified elsewhere; W18.30XA Fall on same level, unspecified, initial encounter; Z68.26 Body mass index [BMI] 26.0-26.9, adult
CPT/HCPCS: 36415; 71045; 73562; 73721; 80048; 80053; 81001; 82550; 83735; 84484; 85025; 87077; 87086; 87186; 93005; 96360; 97110; 97116; 97161; 97166; 97530; 97535; 99284; G0378; J0696; J1335; J1650; J1885; J7030; J7050

== ENCOUNTER 2025-10-04 11:42 | Emergency (ER) | payer MEDICARE, SELFPAY ==
[2025-09-26 23:33] VITALS: BMI 26.5
[2025-10-04 11:59] VITALS: BP 171/84; PULSE 80; RESP 20; TEMP 36.7; O2SAT 97; BMI 28.3
--- NOTE | 2025-10-04 12:05 | DI.US.S_ITS ---
PROCEDURE: US PERIPH VENOUS UP EXTREM LT INDICATIONS: swelling TECHNIQUE: Real-time imaging, as well as color and pulse Doppler interrogation, was performed of the upper extremity deep veins from the inferior neck to the antecubital fossa. COMPARISON: None. FINDINGS: The internal jugular vein, visualized portions of the subclavian vein, axillary, and brachial veins are free of intraluminal thrombus. Where physically possible, the veins are normally compressible. Color and pulse Doppler demonstrate normal intraluminal flow, with expected phasicity and pulsatility. Additional scanning of the cephalic and basilic veins of the superficial system demonstrates normal compressibility, without thrombus. IMPRESSION: No findings of upper extremity deep venous thrombosis can be seen. Approved by: Rick Hook M.D. on 10/04/2025 at 13:27
--- NOTE | 2025-10-04 12:08 | ED.EXTPRO ---
HPI - Extremity Problem General Chief complaint: Extremity Problem,Nontraumatic Stated complaint: Knee pain Time Seen by Provider: 10/04/25 12:04 Source: patient and EMS Mode of arrival: EMS History of Present Illness HPI Narrative: Patient is 80-year-old female with known oblique tear of posterior horn of medial meniscus in the left knee presenting today with ongoing knee pain. She reports that she was discharged to [facility] [place] [facility] however she did not like it there so she left in his now staying in a hotel. She is out of her pain medications. No fever chills or redness of her knee. Related Data Home Medications ?Medication ?Instructions ?Recorded ?Confirmed aspirin 325 mg tablet 325 mg PO BID 08/25/24 09/27/25 gabapentin 300 mg capsule 300 mg PO PRN 09/27/25 09/27/25 Previous Rx's ?Medication ?Instructions ?Recorded ciprofloxacin HCl 500 mg tablet 500 mg PO BID #10 tabs 09/30/25 hydrocodone 5 mg-acetaminophen 325 1 tab PO Q6H PRN pain #14 tabs 09/30/25 mg tablet hydrocodone 5 mg-acetaminophen 325 1 tab PO Q6H PRN pain #20 tabs 10/04/25 mg tablet Allergies Allergy/AdvReac Type Severity Reaction Status Date / Time Sulfa (Sulfonamide Allergy Mild Hives Verified 07/16/25 07:23 Antibiotics) Patient History Social History household members: family and none Exam Initial Vital Signs Initial Vital Signs: Vital Signs Temperature 98.0 F 10/04/25 11:59 Pulse Rate 80 10/04/25 11:59 Respiratory Rate 20 10/04/25 11:59 Blood Pressure 171/84 H 10/04/25 11:59 Pulse Oximetry 97 10/04/25 11:59 Oxygen Delivery Method Room Air 10/04/25 11:59 GENERAL: Well-appearing, well-nourished and in no acute distress. CARDIOVASCULAR: peripheral pulses in tact, cap refill <2 sec RESPIRATORY: No respiratory distress, speaks in full sentences without difficulty EXTREMITIES: Normal range of motion, no clubbing or edema. Neurovascularly intact Left lower extremity slightly swollen no significant calf tenderness no erythema of the knee itself mildly tender NEUROLOGICAL: Cranial nerves II through XII grossly intact. Normal gait and speech. SKIN: Warm, dry, no petechiae, no rashes or lesions. Course Orders Ordered: ED Orders 10/04/25 12:05 Consult to PAINTER ROUGH - Communication Consultant Stat US periph venous up extrem lt Stat 10/04/25 14:48 Consult to Home Health Stat Discontinued Medications Hydrocodone Bitart/Acetaminophen (Hydrocodone/Acet 5/325 Tablet) 1 tab PO NOW ONE Stop: 10/04/25 12:06 Last Admin: 10/04/25 12:52 Dose: 1 tab Documented By: WEST Vital Signs Vital signs: Vital Signs - 8 hr 10/04/25 11:59 10/04/25 15:04 Temperature 98.0 F 97.8 F Pulse Rate 80 68 Respiratory Rate 20 18 Blood Pressure 171/84 H 176/78 H Pulse Oximetry 97 100 Oxygen Delivery Method Room Air Room Air Oxygen Flow Rate 0 MDM - Extremity (Nontraumatic) Imaging Data US - DVT: Radiologist's Impression: PROCEDURE: US PERIPH VENOUS UP EXTREM LT INDICATIONS: swelling TECHNIQUE: Real-time imaging, as well as color and pulse Doppler interrogation, was performed of the upper extremity deep veins from the inferior neck to the antecubital fossa. COMPARISON: None. FINDINGS: The internal jugular vein, visualized portions of the subclavian vein, axillary, and brachial veins are free of intraluminal thrombus. Where physically possible, the veins are normally compressible. Color and pulse Doppler demonstrate normal intraluminal flow, with expected phasicity and pulsatility. Additional scanning of the cephalic and basilic veins of the superficial system demonstrates normal compressibility, without thrombus. IMPRESSION: No findings of upper extremity deep venous thrombosis can be seen. Approved by: Rick Hook M.D. on 10/04/2025 at 13:27 MDM Narrative Medical decision making narrative: Patient 80-year-old female with known left knee injury, confirmed by recent MRI, having increasing pain today left leg is slightly swollen but no significant calf pain. Ruled out for DVT. Social work spoke with patient made arrangements for home health and [facility] assisted living is agreeable to take her back. At this time there is no evidence of septic joint, cellulitis, DVT. I suspect her pain is secondary to ongoing meniscal injury. Recommend outpatient follow up with Orthopedics. He is given pain medication to go home Discharge Plan Departure Patient Disposition: Home Clinical Impression: Acute medial meniscal injury of knee, Left knee pain Instructions: DI for Knee Pain Activity Restrictions/Additional Instructions: *You have been diagnosed with left knee pain *What to do: At this time you will need to follow up with Orthopedics. Please call [facility] tomorrow to schedule an appointment for knee brace as needed. Home health is being arranged for you *Continue to take medications as directed Osseo 1 tablet every 6 hours if needed for severe pain *Follow up with your primary care provider in 2-3 days or call [phone] *Return to ER if you should have increasing pain redness swelling or any new, worsening or concerning symptoms CONTROLLED SUBSTANCE DISCHARGE (Narcotoic/benzodiazepine/Flexeril/Phenergan) 1. You have been prescribed narcotic medications, it does have acetaminophen/Tylenol/paracetamol in it, DO NOT TAKE MORE THAN 4,00mg in 24 hours of Tylenol. TRAMADOL DOES NOT CONTAIN TYLENOL 2. Please understand that we cannot provide further refills of narcotics, benzodiazepines or controlled substances through the ED and her pain management will need to be through your provider. 3. While on these medications you cannot drive or operate heavy machinery. 4. You cannot sign legal documents or perform any duties such as this. 5. As long as you're taking opiate pain medications he should also be taking a stool softener such as Colace, Dulcolax, MiraLAX or prune juice, to help avoid constipation. Prescriptions: New hydrocodone-acetaminophen 5-325 mg tablet 1 tab PO Q6H PRN (Reason: pain) Qty: 20 0RF No Action aspirin 325 mg tablet 325 mg PO BID gabapentin 300 mg capsule 300 mg PO PRN ciprofloxacin HCl 500 mg tablet 500 mg PO BID Qty: 10 0RF hydrocodone-acetaminophen 5-325 mg tablet 1 tab PO Q6H PRN (Reason: pain) Qty: 14 0RF Referrals: Margaret Silveira DO [Primary Care Provider, Family Practice] Stand Alone Forms: Patient Portal/API
[2025-10-04 15:04] VITALS: BP 176/78; PULSE 68; RESP 18; TEMP 36.6; O2SAT 100
--- NOTE | 2025-10-04 15:32 | CM.SWNOTE ---
ED AVIATION ELECTRONIC WARFARE OPERATOR Note Patient is 80 y/o female who presents to ED via EMS due to concern for knee pain and weakness. It is reported that patient left [facility] rehab yesterday after placement there upon recent acute care d/c on 09/30/25. Patient's PCP is Dr. Silveira, patient has [employer] Medicare insurance. Per EMR patient has upcoming PCP appt on 10/06/25. Patient has hx of Parkinsons and Neuropathy. AVIATION ELECTRONIC WARFARE OPERATOR meets with patient, patient presents as A/Ox4. Patient reports that she resides at [facility]. It is reported that patient stayed at a hotel room last night upon leaving [facility]. Patient endorses plan to return to [facility] today. Patient indicates independence with ADLs, states she utilizes her FWW and accesses transportation through [facility]. It is reported that patient's dog was placed in a [facility] while patient was at SNF rehab and she wants to reunite with her dog. Patient has a sister that lives locally in [place] but she is currently on vacation. Patient's daughter Cristina is DPOA and she resides in [facility]. AVIATION ELECTRONIC WARFARE OPERATOR discusses Home health and patient indicates interest in this service. Patient denies agency preference and AVIATION ELECTRONIC WARFARE OPERATOR contacts [facility] per agency rotation. AVIATION ELECTRONIC WARFARE OPERATOR leaves VM with [facility] and sends referral with signed F2F and clinicals for PT, OT, RN and HH aide. AVIATION ELECTRONIC WARFARE OPERATOR provides patient with list of DME resources and contacts patient's PCP clinic regarding patient's presentation to the ED and care plan. AVIATION ELECTRONIC WARFARE OPERATOR calls Dianne the Writing [facility] Director of [facility] and she endorses that she is aware of patient's plan to return and welcomes her to return home, AVIATION ELECTRONIC WARFARE OPERATOR discusses plan for Home health referral with [facility]. AVIATION ELECTRONIC WARFARE OPERATOR attempts to contact the dog m[facility] that patient's dog is currently at but they are closed today, AVIATION ELECTRONIC WARFARE OPERATOR encourages patient to call them tomorrow. Plan: patient to d/c to home at [facility] upon medical clearance with rx for pain management via taxi, patient to f/u with PCP on Sunday, [facility] to follow up with patient. Betty Rodriguez, PLACEMENT COORDINATOR
== END 2025-10-04 15:07 | disposition home or self-care (01) ==
PROVIDERS: Emergency Provider Emergency Medicine; PCP Family Medicine
DX: S83.8X2A Sprain of other specified parts of left knee, initial encounter (principal); X58.XXXA Exposure to other specified factors, initial encounter
CPT/HCPCS: 93971; 99283

== ENCOUNTER 2025-10-15 12:25 | Emergency (ER) | payer MEDICARE, SELFPAY ==
[2025-09-26 23:33] VITALS: BMI 26.5
[2025-10-15 13:07] VITALS: BP 144/65; PULSE 79; RESP 18; TEMP 36.9; O2SAT 96; BMI 24.7
[2025-10-15 15:39] VITALS: PULSE 80
--- NOTE | 2025-10-15 15:39 | ED.EXTPRO ---
HPI - Extremity Problem General Chief complaint: Extremity Problem,Nontraumatic Stated complaint: severe Left knee pain Time Seen by Provider: 10/15/25 15:22 Source: patient Mode of arrival: Wheelchair History of Present Illness HPI Narrative: Ms. Coronel is a pleasant 80-year-old female with a past medical history of Parkinson's disease who presents to the emergency department for acute on chronic left knee pain. She lives at [facility], she is here with her friend. The patient has been dealing with left knee pain for a few weeks now. On 09/30/2025 the patient had an MRI and x-ray of her left knee, she was hospitalized at that time for anorexia and weakness. Imaging revealed tricompartmental osteoarthritis and a medial meniscal tear and an MCL tear. She is scheduled to see [facility] on November 03 however she ran out of pain medication and is having severe pain of the left knee making it difficult for her to walk. She is not having any swelling of the leg, redness, fevers, chills or flu-like symptoms. She is taking aspirin multiple times a day as this the only thing that helps with her pain. She did have hydrocodone previously but she ran out of this. She has ambulating with a Rollator walker. Related Data Home Medications ?Medication ?Instructions ?Recorded ?Confirmed aspirin 325 mg tablet 325 mg PO BID 08/25/24 10/06/25 gabapentin 300 mg capsule 300 mg PO PRN 09/27/25 10/06/25 Previous Rx's ?Medication ?Instructions ?Recorded ciprofloxacin HCl 500 mg tablet 500 mg PO BID #10 tabs 09/30/25 hydrocodone 5 mg-acetaminophen 325 1 tab PO Q6H PRN pain #20 tabs 10/04/25 mg tablet hydrocodone 5 mg-acetaminophen 325 1 tab PO Q4-6H PRN pain #18 tabs 10/15/25 mg tablet naproxen 500 mg tablet 500 mg PO BID PRN pain #20 tabs 10/15/25 Allergies Allergy/AdvReac Type Severity Reaction Status Date / Time Sulfa (Sulfonamide Allergy Mild Hives Verified 10/15/25 13:10 Antibiotics) Review of Systems Review of Systems ROS Unobtainable: All systems reviewed & are unremarkable except as noted in HPI and below Patient History Social History household members: family and none Smoking Status: Never smoker Exam Narrative Exam Narrative: GENERAL: 80 year old patient appears stated age. Well-developed patient, in no acute distress. HEAD: Atraumatic. Normocephalic. CARDIOVASCULAR: Regular rate RESPIRATORY: ?Nonlabored respirations. ?Speaking in clear, full sentences. EXTREMITIES: Left knee with very minimal edema. No erythema, increased warmth or skin changes. No reproducible laxity. No calf tenderness or swelling, strong palpable DP pulse and brisk cap refill in the toes. Sensation intact to light touch on the plantar and dorsal aspect of the foot. Patient does have pain with in the knee with active and passive flexion and extension. She is most comfortable with full extension. NEURO: AOx3. ?Clear speech. ?Moves all 4 extremities appropriately. SKIN: No rash or erythema of visible areas Initial Vital Signs Initial Vital Signs: Vital Signs Temperature 98.5 F 10/15/25 13:07 Pulse Rate 79 10/15/25 13:07 Respiratory Rate 18 10/15/25 13:07 Blood Pressure 144/65 H 10/15/25 13:07 Pulse Oximetry 96 10/15/25 13:07 Oxygen Delivery Method Room Air 10/15/25 13:07 Course Orders Ordered: Discontinued Medications Hydrocodone Bitart/Acetaminophen (Hydrocodone/Acet 5/325 Tablet) 1 tab PO NOW ONE Stop: 10/15/25 15:40 Last Admin: 10/15/25 15:52 Dose: 1 tab Documented By: GALE Vital Signs Vital signs: Vital Signs - 8 hr 10/15/25 13:07 10/15/25 15:39 10/15/25 16:31 Temperature 98.5 F Pulse Rate 79 76 Pulse Rate [Left Dorsalis Pedis] 80 Respiratory Rate 18 18 Blood Pressure 144/65 H 182/77 H Pulse Oximetry 96 99 Oxygen Delivery Method Room Air Room Air MDM - Extremity (Nontraumatic) Medical Records Attestation: I reviewed the patient's medical records. MDM Narrative Medical decision making narrative: 80-year-old female with a past medical history of Parkinson's disease who presents to the emergency department for acute on chronic left knee pain. Differential diagnosis includes but isn't limited to acute on chronic left knee pain secondary to ligament injury, meniscus injury, osteoarthritis, etc. On exam patient is in no acute distress, nontoxic appearing, vital signs appropriate except for elevated blood pressure. She is in significant left knee pain after running out of her home pain medication. She has been using aspirin and an elastic knee brace. Her knee is not erythematous, no increased warmth, no pain out of proportion to exam, range of motion is intact and there is no calf swelling or tenderness. Exam not concerning for DVT or septic joint. She is neurovascularly intact. Printed and reviewed her imaging including left knee x-ray, knee MRI and peripheral vascular ultrasound and reviewed all of these findings. Discussed with the patient that she should follow up with the orthopedic surgeon for further management of this whether that be injections, surgery or other options. In the meantime I did recommend rice therapy, naproxen, Tylenol for pain, hydrocodone for severe breakthrough pain. Discussed the risks of narcotics in the ED can not refill narcotics. Patient verbalized understanding all information is agreeable to this plan. She is stable for discharge home, we did discuss continued blood pressure evaluation and return precautions in regards to her blood pressure. Discharge Plan Departure Patient Disposition: Home Clinical Impression: Knee pain, left Qualifiers: Chronicity: chronic Qualified Code(s): M25.562 - Pain in left knee Instructions: DI for Osteoarthritis Activity Restrictions/Additional Instructions: Dear Ms. Simmons, Thank you for coming to the emergency department. Today you were evaluated for left knee pain. As we discussed your left knee has osteoarthritis and injury to the medial ligament and meniscus. It is very important that you follow up with [facility] for further management. You have been prescribed an opioid pain medication, hydrocodone-acetaminophen, in addition to naproxen. Do not take naproxen with other NSAIDs such as aspirin. Please use RICE therapy for your pain in addition to naprxen/acetaminophen. Rest the painful area. Ice the area of pain/swelling for at least 15 minutes, 4x a day. Compress the area of swelling using a brace, wrap, or splint if applied. Elevate the painful or swollen extremity by supporting it above the level of the heart with pillows when sitting or laying. You have been prescribed a short course of narcotic medications. These are potentially dangerous and addictive medications that should be used carefully. While on these medications you cannot drive or operate heavy machinery. Additionally, you cannot sign legal documents or perform any duties such as this. Many people get constipated on narcotic medications so it would be advisable to discuss stool softeners with the pharmacist when you turkey picker your prescription. Please understand that we cannot provide further refills of narcotics or controlled substances through the ED and your pain management will need to be through your Primary Care Provider Please follow up with your primary care doctor within the next 2-3 days for ER follow-up. (If you do not have a PCP you can call [phone]. ?to schedule an appointment with an [facility] Primary Care Provider) IF YOU DEVELOP ANY NEW OR WORSENING SYMPTOMS, RETURN TO THE ER! Please read the attached instructions, they highlight more specific treatments and interventions for you at home. Thank you for letting me participate in your care, Mavis Hwang PA-C Prescriptions: New naproxen 500 mg tablet 500 mg PO BID PRN (Reason: pain) Qty: 20 0RF Rx Instructions: Take with food. hydrocodone-acetaminophen 5-325 mg tablet 1 tab PO Q4-6H PRN (Reason: pain) Qty: 18 0RF No Action aspirin 325 mg tablet 325 mg PO BID gabapentin 300 mg capsule 300 mg PO PRN ciprofloxacin HCl 500 mg tablet 500 mg PO BID Qty: 10 0RF hydrocodone-acetaminophen 5-325 mg tablet 1 tab PO Q6H PRN (Reason: pain) Qty: 20 0RF Referrals: Rick Brown MD [Physician, Orthopedics] Referral Note: Left Knee Pain Margaret Silveira DO [Primary Care Provider, Family Practice] Stand Alone Forms: Patient Portal/API
[2025-10-15 16:31] VITALS: BP 182/77; PULSE 76; RESP 18; O2SAT 99
== END 2025-10-15 16:33 | disposition home or self-care (01) ==
PROVIDERS: Emergency Provider Physician Assistant; PCP Family Medicine
DX: M25.562 Pain in left knee (principal); G89.29 Other chronic pain
CPT/HCPCS: 99283